=== PATIENT | female | born 1935 | race Caucasian/White ===

== ENCOUNTER 2019-06-18 10:52 | Inpatient (IN) | payer OTHER ==
--- NOTE | 2019-06-18 12:07 | PDOC ---
History of Present Illness - General Chief Complaint: Injury Stated Complaint: FALL Time Seen by Provider: 06/18/19 12:06 History Source: Patient Exam Limitations: No Limitations - History of Present Illness Initial Comments: 06/18/19 15:18 Rosemary Yip is a 83yF w HTN presenting w hip pain s/p fall. 10:30a this morning, pt felt legs give way, fell down on L hip with subsequent pain. Also hit L temporal head. Currently complaining of L hip and thigh pain. Denies LE numbness, tingling. Not on anticoagulation. Denies fever, headache, changes of vision, SOB, chest/AB pain. Did not attempt to ambulate after fall. Past History - Past Medical History Allergies/Adverse Reactions: Allergies Allergy/AdvReac Type Severity Reaction Status Date / Time No Known Allergies Allergy Verified 11/21/11 10:11 Home Medications: Ambulatory Orders Metformin HCl [Glucophage] 850 mg PO DAILY 11/21/11 Fluoxetine HCl [Prozac -] 20 mg PO DAILY #0 capsule 12/04/11 Aspirin 81 mg PO Q2D 06/18/19 Atenolol [Tenormin] 50 mg PO DAILY 06/18/19 Celecoxib [Celebrex] 100 mg PO DAILY 06/18/19 Losartan/Hydrochlorothiazide [Losartan-Hctz 50-12.5 mg Tab] PO DAILY 06/18/19 Vitamin D3 2,000 units PO DAILY 06/18/19 Anemia: No Asthma: No Cancer: No Cardiac Disorders: No CVA: No COPD: Yes CHF: No Dementia: No Diabetes: Yes GI Disorders: No Disorders: No HTN: Yes Hypercholesterolemia: No Liver Disease: Yes (alcohol related.) Seizures: No Thyroid Disease: No - Surgical History Abdominal Surgery: No Appendectomy: No Cardiac Surgery: No Cholecystectomy: No Lung Surgery: No Neurologic Surgery: Yes (spinal sx- abscess excision) Orthopedic Surgery: No - Immunization History Td Vaccination: No TDAP Vaccination: No Immunization Up to Date: Yes - Suicide/Smoking/Psychosocial Hx Smoking Status: No (QUIT X 28 YRS AGO0) Smoking History: Former smoker Have you smoked in the past 12 months: No Number of Cigarettes Smoked Daily: 0 If you are a former smoker, when did you quit?: 30 years ago Hx Alcohol Use: No (stopped 30 years ago) Drug/Substance Use Hx: No Substance Use Type: None Hx Substance Use Treatment: No Review of Systems - Review of Systems Constitutional: No: Chills, Fever HEENTM: No: Eye Pain, Ear Pain, Nose Pain, Throat Pain Respiratory: No: Cough, Shortness of Breath Cardiac (ROS): No: Chest Pain, Edema, Palpitations, Syncope ABD/GI: No: Abdominal Distended, Constipated, Diarrhea, Nausea, Vomiting : No: Burning, Dysuria, Discharge, Flank Pain, Hematuria Musculoskeletal: Yes: Other (L hip, thigh pain). No: Back Pain Integumentary: No: Bruising, Flushing, Lesions Neurological: No: Headache, Numbness, Seizure, Tingling, Tremors Psychiatric: No: Anxiety, Depression, Stressors Endocrine: No: Symptoms Reported, Excessive Sweating, Flushing, Intolerance to Heat Hematologic/Lymphatic: No: Anemia, Blood Clots, Easy Bleeding *Physical Exam - Physical Exam General Appearance: Yes: Nourished, Appropriately Dressed, Mild Distress HEENT: positive: EOMI, MATHEUS, Hearing Grossly Normal. negative: Scleral Icterus (R), Scleral Icterus (L), Nasal Congestion, Rhinorrhea Neck: positive: Supple. negative: Tender, Rigid Respiratory/Chest: positive: Lungs Clear, Normal Breath Sounds. negative: Chest Tender, Respiratory Distress, Crackles, Rales, Rhonchi, Stridor, Wheezing Cardiovascular: positive: Regular Rhythm, Regular Rate, S1, S2. negative: Edema , Murmur Musculoskeletal: positive: Normal Inspection Extremity: positive: Normal Capillary Refill, Tender (moderate tenderness L hip , thigh), Other (3/5 L hip flexion, 5/5 plantar/dorsiflexion. 3+ dp pulses, normal sensation bilaterally. L leg external rotated, shortened 1inch versus R leg). negative: Swelling, Erythema Integumentary: positive: Normal Color Neurologic: positive: multi sensor operator II-XII NML intact, Fully Oriented, Alert, Normal Mood/ Affect, Normal Response, Respond to painful stimul, Responsive. negative: Sensory Deficit, Confused, Disoriented ED Treatment Course - LABORATORY CBC & Chemistry Diagram: 06/18/19 12:05 06/18/19 12:05 Medical Decision Making - Medical Decision Making 06/18/19 12:45 CBC CMP trop coags T&S EKG CXR head/c-spine/lumbar CT shows no fracture/subluxation, post bilateral laminectomy C4-7 CXR clear lungs L hip/pelvis XR shows L greater trochanter displaced, non comminuted fracture Given 6 morphine + 1L NS for pain ALP 236 CBC, CMP, coags normal, trop neg Rosemary Yip is a 83yF w HTN presenting w hip pain s/p mechanical fall. XR shows L hip comminuted intertrochanteric fracture. Not on anticoagulation. Neuro intact. Head/c-spine/lumbar CT neg bleed/fracture, post bilateral laminectomy C4-7. Given 6 morphine + 1L NS for pain. Admitted to [facility] for femur fracture. Consulted ortho Adithya BLACKMAN. Agreed with plan to admit, dont have to keep her NPO tonight because she likely will not have surgery tomorrow Called cotton ti[facility] Dr Matute notifying Dr Yury Diaz PCP of pt being admitted for fracture. *DC/Admit/Observation/Transfer Diagnosis at time of Disposition: Intertrochanteric fracture of left hip Qualifiers: Encounter type: initial encounter Fracture type: closed Fracture alignment: displaced Qualified Code(s): S72.142A - Displaced intertrochanteric fracture of left femur, initial encounter for closed fracture - Discharge Dispostion Condition at time of disposition: Good - Referrals Referrals: Yruy Diaz MD [Primary Care Provider] - - Patient Instructions - Post Discharge Activity
[2019-06-18] MEDS ORDERED: morphine CARPU-JECT 4 MG/1 ML DISP.SYRIN IVPUSH ONE ×2 (12:35→16:45)
[2019-06-18 12:41] LABS: BASO % 0.4 % (0-2.0); EOS % 2.8 % (0-4.5); HEMATOCRIT 37.1 % (32.4-45.2); HEMOGLOBIN 12.6 GM/dL (10.7-15.3); MCH 33.4 pg (25.7-33.7); MEAN CELL VOLUME 98.4 fl (80-96); MEAN PLT VOLUME 8.5 fl (7.5-11.1); MONO % 6.4 % (3.8-10.2); NEUT % 76.4 % (42.8-82.8); PLATELET COUNT 121 K/MM3 (134-434); RBC 3.77 M/mm3 (3.60-5.2); RDW 13.1 % (11.6-15.6); WHITE BLOOD COUNT 7.3 K/mm3 (4.0-10.0)
[2019-06-18 13:07] LABS: INR 1.04 (0.83-1.09); PROTHROMBIN TIME (PATIENT) 12.3 SEC (9.7-13.0)
[2019-06-18] MEDS ORDERED: MORPHINE SULFATE 2 MG/ML VIAL ONE (13:08)
[2019-06-18 13:41] LABS: ALBUMIN 3.4 g/dl (3.4-5.0); ALK PHOS 236 U/L (45-117); ANION GAP 8 MMOL/L (8-16); BILIRUBIN,TOTAL 0.8 mg/dL (0.2-1); BLOOD UREA NITROGEN 17.2 mg/dL (7-18); CALCIUM 9.9 mg/dL (8.5-10.1); CHLORIDE 93 mmol/L (98-107); CO2 30 mmol/L (21-32); CREATININE 1.1 mg/dL (0.55-1.3); GLUCOSE,RANDOM 134 mg/dL (74-106); POTASSIUM 3.9 mmol/L (3.5-5.1); SGOT/AST 32 U/L (15-37); SGPT/ALT 18 U/L (13-61); SODIUM 130 mmol/L (136-145); TOT PROT 6.8 g/dl (6.4-8.2)
[2019-06-18] MEDS ORDERED: SODIUM CHLORIDE 0.9% 500 ML INFUS.BAG IV ONE (16:45)
[2019-06-18] MEDS ORDERED: morphine SULFATE 4 MG/ML VIAL ONE (17:18)
[2019-06-18] MEDS ORDERED: morphine CARPU-JECT 2 MG/1 ML DISP.SYRIN IVPUSH PRN (17:29)
[2019-06-18] MEDS ORDERED: ACETAMINOPHEN 325 MG TABLET (FP) PO PRN (17:29)
[2019-06-18] MEDS: SODIUM CHLORIDE 1,000 ML IV SCH ×2 (18:14→22:02)
--- NOTE | 2019-06-18 19:03 | PN ---
Progress Note (short form) - Note Progress Note: Pt known to me for > 30 years. Most recent history notable for cervical osteomyelitis 5 years ago, treated with surgery and prolonged antibiotics, but which left her with a gait disturance. Other history includes hypertension, anxiety, and type 2 diabetes. Recent medications included: vitamin D3 2000 units daily Cozaar 50 mg po daily metoprolol succinate 50 mg po daily Prozac 20 mg po daily metformin HCL 850 mg po daily diazepam 5 mg po tid as needed She has had both 23 and 13-valent pneumococcal vaccine. She has not yet had this year's influenza vaccine. She fell in my office today when getting off a scale, resulting in a hip fracture and transfer to hospital. Wesley Diaz MD
--- NOTE | 2019-06-18 20:06 | HP ---
Admitting History and Physical - Primary Care Physician PCP: Dr. 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 Patient s/p fall at 10: 30am went to her doctor office where she felt legs give way, fell down on left hip, also hit her left temporal head. Currently complaining of Left hip pain . Patient denies numbness, tingling. Denies fever, headache, dizziness, changes of vision, SOB, chest pain. Patient is not on anticoagulation. History Source: Patient, Family Member Limitations to Obtaining History: No Limitations - Past Medical History Cardiovascular: Yes: HTN Pulmonary: Yes: COPD Hepatobiliary: Yes: Other (liver disease (secondary to EtOH)) Psych: Yes: Depression Endocrine: Yes: Diabetes Mellitus - Past Surgical History Additional Past Surgical History: Spinal abscess excision, post laminectomy from C4- C7 - Smoking History Smoking history: Former smoker Have you smoked in the past 12 months: No Aproximately how many cigarettes per day: 0 If you are a former smoker, when did you quit?: 30 years ago - Alcohol/Substance Use Hx Alcohol Use: No (stopped 30 years ago) - Social History History of Recent Travel: No Home Medications - Allergies Allergies/Adverse Reactions: Allergies Allergy/AdvReac Type Severity Reaction Status Date / Time No Known Allergies Allergy Verified 11/21/11 10:11 - Home Medications Home Medications: Ambulatory Orders Metformin HCl [Glucophage] 850 mg PO DAILY 11/21/11 Fluoxetine HCl [Prozac -] 20 mg PO DAILY #0 capsule 12/04/11 Aspirin 81 mg PO Q2D 06/18/19 Atenolol [Tenormin] 50 mg PO DAILY 06/18/19 Celecoxib [Celebrex] 100 mg PO DAILY 06/18/19 Losartan/Hydrochlorothiazide [Losartan-Hctz 50-12.5 mg Tab] PO DAILY 06/18/19 Vitamin D3 2,000 units PO DAILY 06/18/19 Family Medical History Family History: Denies Review of Systems - Review of Systems Constitutional: reports: No Symptoms Eyes: reports: No Symptoms HENT: reports: No Symptoms Neck: reports: No Symptoms Cardiovascular: reports: No Symptoms Respiratory: reports: No Symptoms Gastrointestinal: reports: No Symptoms Genitourinary: reports: No Symptoms Musculoskeletal: reports: Back Pain, Extremity Pain Integumentary: reports: No Symptoms Neurological: reports: No Symptoms Endocrine: reports: No Symptoms Psychiatric: reports: No Symptoms Pain Intensity: 8 (Left hip pain 8/10 post morphine ) Physical Examination Vital Signs: Vital Signs Temperature 98.2 F 06/18/19 19:53 Pulse Rate 85 06/18/19 19:53 Respiratory Rate 18 06/18/19 19:53 Blood Pressure 122/64 06/18/19 19:53 O2 Sat by Pulse Oximetry (%) 97 06/18/19 11:30 Constitutional: Yes: Mild Distress Eyes: Yes: Conjunctiva Clear HENT: Yes: Atraumatic, Normocephalic Neck: Yes: Supple, Trachea Midline Cardiovascular: Yes: Regular Rate and Rhythm Respiratory: Yes: Regular, CTA Bilaterally Gastrointestinal: Yes: Normal Bowel Sounds, Soft Musculoskeletal: Yes: Other (Tender L hip, thigh, L leg external rotated, shortened 1inch versus R leg) Extremities: Yes: Other (+Left hip tenderness to palpation. +LLE is short and externally rotated. +2+ pedal pulses. unable to move LLE) Edema: No Integumentary: Yes: WNL Neurological: Yes: Alert, Oriented Labs: CBC, BMP 06/18/19 12:05 06/18/19 12:05 Imaging - Results Chest X-ray: Report Reviewed (no acute finding) X-ray: Report Reviewed (Hip/pelvis: left hip communicated intertochanteric fx) Cat Scan: Report Reviewed (C-spine: s/p laminectomy from C4- C7 CT brain: no acute bleeding, infarct CT lumbar spine: multilevel disc buldge, no fracture) Problem List - Problems (1) Cause of injury, fall Code(s): W19.XXXA - UNSPECIFIED FALL, INITIAL ENCOUNTER (2) Diabetes Code(s): E11.9 - TYPE 2 DIABETES MELLITUS WITHOUT COMPLICATIONS (3) HTN (hypertension) Code(s): I10 - ESSENTIAL (PRIMARY) HYPERTENSION (4) COPD (chronic obstructive pulmonary disease) Code(s): J44.9 - CHRONIC OBSTRUCTIVE PULMONARY DISEASE, UNSPECIFIED (5) Intertrochanteric fracture of left hip Code(s): S72.142A - DISPLACED INTERTROCHANTERIC FRACTURE OF LEFT FEMUR, INIT Qualifiers: Encounter type: initial encounter Fracture type: closed Fracture alignment: displaced Qualified Code(s): S72.142A - Displaced intertrochanteric fracture of left femur, initial encounter for closed fracture Assessment/Plan 83 year old with PMHx of HTN, COPD, DM arrived to ED s/p fall with hip pain. #L hip comminuted intertrochanteric fracture #s/p fall - CXR: no acute finding - CT head- no acute infarct, bleeding noted - C- spine CT- post bilateral laminectomy C4-7 - Lumbar CT- shows no fracture/subluxation - L hip/pelvis XR shows L greater trochanter displaced, non comminuted fracture IN ED given 6 morphine and 1L NS CBC, CMP, coags normal, trop neg - continue with IV fluids - pain management - follow up Ortho in AM # DM - monitor FSBS - Novolog sliding scale #HTN - hold po medication - Losartan/Hydrochlorothiazide PO DAILY - Atenolol [Tenormin] 50 mg PO DAILY # Depression - Fluoxetine HCl 20 mg PO DAILY DIET: DARIO/NCS DVT: Heaprin SQ Visit type - Emergency Visit Emergency Visit: Yes ED Registration Date: 06/18/19 Care time: The patient presented to the Emergency Department on the above date and was hospitalized for further evaluation of their emergent condition. - New Patient This patient is new to me today: Yes Date on this admission: 06/18/19 - Critical Care Critical Care patient: No
[2019-06-18] MEDS: HEPARIN NA (PORCINE) 5,000 UNITS/ML 1ML VIAL SQ SCH (22:02)
[2019-06-18] MEDS: MORPHINE SULFATE 2 MG/ML VIAL IVPUSH PRN (22:12)
[2019-06-19 01:37] VITALS: BMI 29.0
[2019-06-19] MEDS: MORPHINE SULFATE 2 MG/ML VIAL IVPUSH PRN ×2 (02:54→12:09)
[2019-06-19] MEDS: INSULIN SLIDING SCALE (NOVOLOG) 1 VIAL SQ SCH ×2 (06:19→16:51)
[2019-06-19 07:11] LABS: HEMATOCRIT 33.7 % (32.4-45.2); HEMOGLOBIN 11.5 GM/dL (10.7-15.3); MCH 33.9 pg (25.7-33.7); MCHC 34.2 g/dl (32.0-36.0); MEAN CELL VOLUME 99.2 fl (80-96); MEAN PLT VOLUME 8.3 fl (7.5-11.1); PLATELET COUNT 111 K/MM3 (134-434); WHITE BLOOD COUNT 6.5 K/mm3 (4.0-10.0)
[2019-06-19 07:16] LABS: BLOOD UREA NITROGEN 18.1 mg/dL (7-18); CALCIUM 9.2 mg/dL (8.5-10.1); CREATININE 1.1 mg/dL (0.55-1.3); POTASSIUM 4.4 mmol/L (3.5-5.1)
[2019-06-19] MEDS ORDERED: PT OWN MED DRAWER 7, Y5N ONE (09:30)
[2019-06-19] MEDS: FLUoxetine HCL 20 MG CAPSULE (FP) PO SCH (09:31)
[2019-06-19] MEDS: HEPARIN NA (PORCINE) 5,000 UNITS/ML 1ML VIAL SQ SCH ×2 (09:31→21:13)
[2019-06-19] MEDS: CHOLECALCIFEROL (VIT D3) 1,000 UNIT (25 MCG) TABLET PO SCH (09:31)
[2019-06-19] MEDS ORDERED: VITAMIN D3 2000 UNIT PO SCH (10:00)
[2019-06-19] MEDS ORDERED: CELECOXIB 100 MG CAPSULE PO SCH (10:00)
[2019-06-19] MEDS ORDERED: LOSARTAN 50MG/HCTZ 12.5MG 1 TAB (FP) PO SCH (10:00)
[2019-06-19] MEDS ORDERED: ATENOLOL 50 MG TABLET (FP) PO SCH (10:00)
--- NOTE | 2019-06-19 10:59 | PN ---
Physical Exam: SUBJECTIVE: Patient seen and examined at the bedside. Feels well, in no acute distress. having some left hip pain. last bm yesterday, will start bowel regimen having some discomfort from overgrown nails, was going to see her science manager who usually cuts her nails 2/2 diabetes. OBJECTIVE: Patient is an 83 year old female with PMHx of hypertension, diabetes II (on metformin) depression, hx of ETOH abuse years ago, varical bleeding history and liver cirrhosis. Patient arrived to ED for hip pain post fall. Patient s/p fall at her doctor office where she lost her balance when getting on a scale to be weight. She unfortunately sustained a left him comm. fracture and is being admitted for surgical evaluation and pain managment. On exam, patient is laying in the bed, son is as the bedside. She is comfortable and has a hip abductor pillow placed. She denies headache, dizziness, changes of vision, SOB, chest pain. Patient is not on anticoagulation. Vital Signs Period Temp Pulse Resp BP Sys/Hoang Pulse Ox Last 24 Hr 97.6 F-98.5 F 69-86 16-18 116-130/51-86 96-97 GENERAL: The patient is awake, alert, and fully oriented, in no acute distress. HEAD: Normal with no signs of trauma. EYES: PERRL, extraocular movements intact, sclera anicteric, conjunctiva clear. No ptosis. ENT: Ears normal, nares patent, oropharynx clear without exudates, moist mucous membranes. NECK: Trachea midline, full range of motion, supple. LUNGS: Breath sounds equal, clear to auscultation bilaterally, no wheezes HEART: Regular rate and rhythm ABDOMEN: Soft, nontender, obese abdomen nondistended, normoactive bowel sounds EXTREMITIES: no edema. NEUROLOGICAL: Normal speech, left hip fx PSYCH: Normal mood, normal affect. SKIN: Warm, dry, normal turgor, no rashes or lesions noted Laboratory Results - last 24 hr 06/18/19 06/18/19 06/18/19 12:05 12:05 12:05 WBC 7.3 RBC 3.77 Hgb 12.6 Hct 37.1 MCV 98.4 H MCH 33.4 MCHC 34.0 RDW 13.1 Plt Count 121 L MPV 8.5 Absolute Neuts (auto) 5.6 Neutrophils % 76.4 D Lymphocytes % 14.0 D Monocytes % 6.4 Eosinophils % 2.8 Basophils % 0.4 Nucleated RBC % 0 PT with INR 12.30 INR 1.04 Sodium 130 L Potassium 3.9 Chloride 93 L Carbon Dioxide 30 Anion Gap 8 BUN 17.2 Creatinine 1.1 Est GFR (CKD-EPI)AfAm 54.15 Est GFR (CKD-EPI)NonAf 46.72 POC Glucometer Random Glucose 134 H Calcium 9.9 Total Bilirubin 0.8 AST 32 ALT 18 Alkaline Phosphatase 236 H Troponin I < 0.02 Total Protein 6.8 Albumin 3.4 Blood Type Antibody Screen 06/18/19 06/19/19 06/19/19 12:05 06:08 06:08 WBC 6.5 RBC 3.40 L Hgb 11.5 Hct 33.7 MCV 99.2 H MCH 33.9 H MCHC 34.2 RDW 13.0 Plt Count 111 L MPV 8.3 Absolute Neuts (auto) Neutrophils % Lymphocytes % Monocytes % Eosinophils % Basophils % Nucleated RBC % PT with INR INR Sodium 132 L Potassium 4.4 Chloride 98 Carbon Dioxide 28 Anion Gap 7 L BUN 18.1 H Creatinine 1.1 Est GFR (CKD-EPI)AfAm 54.15 Est GFR (CKD-EPI)NonAf 46.72 POC Glucometer Random Glucose 98 Calcium 9.2 Total Bilirubin AST ALT Alkaline Phosphatase Troponin I Total Protein Albumin Blood Type Cancelled Antibody Screen Cancelled 06/19/19 06/19/19 06:08 06:15 WBC RBC Hgb Hct MCV MCH MCHC RDW Plt Count MPV Absolute Neuts (auto) Neutrophils % Lymphocytes % Monocytes % Eosinophils % Basophils % Nucleated RBC % PT with INR INR Sodium Potassium Chloride Carbon Dioxide Anion Gap BUN Creatinine Est GFR (CKD-EPI)AfAm Est GFR (CKD-EPI)NonAf POC Glucometer 104 Random Glucose Calcium Total Bilirubin AST ALT Alkaline Phosphatase Troponin I Total Protein Albumin Blood Type O POSITIVE Antibody Screen Negative Active Medications Generic Name Dose Route Start Last Admin Trade Name Freq PRN Reason Stop Dose Admin Acetaminophen 650 mg 06/18/19 17:29 Tylenol - PO Q6H PRN PAIN LEVEL 6-10 Atenolol 50 mg 06/19/19 10:00 06/19/19 09:31 Tenormin - PO 50 mg DAILY SAGAR Administration Cholecalciferol 2,000 unit 06/19/19 10:00 06/19/19 09:31 Vitamin D3 - PO 2,000 unit DAILY SAGAR Administration Fluoxetine HCl 20 mg 06/19/19 10:00 06/19/19 09:31 Prozac - PO 20 mg DAILY SAGAR Administration HCTZ/Losartan Potassium 1 tab 06/19/19 10:00 06/19/19 09:32 Hyzaar - PO 1 tab DAILY SAGAR Administration Heparin Sodium (Porcine) 5,000 unit 06/18/19 22:00 06/19/19 09:31 Heparin - SQ 5,000 unit BID SAGAR Administration Sodium Chloride 1,000 mls @ 75 mls/hr 06/18/19 17:45 06/18/19 22:02 Normal Saline - IV 75 mls/hr ASDIR SAGAR Administration Insulin Aspart 1 vial 06/19/19 07:00 06/19/19 06:19 Novolog Vial Sliding Scale - SQ Not Given [facility] Protocol Morphine Sulfate 2 mg 06/18/19 17:35 06/19/19 02:54 Morphine Sulfate IVPUSH 2 mg Q4H PRN Administration PAIN LEVEL 7 - 10 ASSESSMENT/PLAN: Problem List - Problems (1) Intertrochanteric fracture of left hip Assessment/Plan: patient s/p fall. L hip/pelvis XR shows L greater trochanter displaced, non comminuted fracture on an abductor pillow continue pain management with ultram and lidocaine patches no other acute fracture on serial imaging ortho to follow patient for surgical evaluation, likely on Friday Cardiology clearance prior to surgery on heparin BID, hold friday Code(s): S72.142A - DISPLACED INTERTROCHANTERIC FRACTURE OF LEFT FEMUR, INIT Qualifiers: Encounter type: initial encounter Fracture type: closed Fracture alignment: displaced Qualified Code(s): S72.142A - Displaced intertrochanteric fracture of left femur, initial encounter for closed fracture (2) Cause of injury, fall Assessment/Plan: has left hip fracture initiate PT once more stable. Code(s): W19.XXXA - UNSPECIFIED FALL, INITIAL ENCOUNTER (3) Diabetes Assessment/Plan: bgms, with novolog ss maintain BGMs < 180 fasting. Code(s): E11.9 - TYPE 2 DIABETES MELLITUS WITHOUT COMPLICATIONS (4) HTN (hypertension) Assessment/Plan: metoprolol 50 daily, cozaar 50mg daily orthostatics once more stable Code(s): I10 - ESSENTIAL (PRIMARY) HYPERTENSION (5) Anxiety Assessment/Plan: valium 5mg tid prn Code(s): F41.9 - ANXIETY DISORDER, UNSPECIFIED (6) Prophylactic measure Assessment/Plan: fen tolerating PO monitor electrolytes hyponatremia noted, continue ivf full code Code(s): Z29.9 - ENCOUNTER FOR PROPHYLACTIC MEASURES, UNSPECIFIED Visit type - Emergency Visit Emergency Visit: Yes ED Registration Date: 06/18/19 Care time: The patient presented to the Emergency Department on the above date and was hospitalized for further evaluation of their emergent condition. - New Patient This patient is new to me today: Yes Date on this admission: 06/19/19 - Critical Care Critical Care patient: No - Discharge Referral Referred to [facility] No
[2019-06-19] MEDS: LIDOCAINE 5% TOPICAL PATCH TP SCH (12:09)
--- NOTE | 2019-06-19 12:19 | CON.CARD ---
Consult Consult Specialty:: Cardiology Referred by:: Medicine Reason for Consultation:: preoperative evaluation - History of Present Illness Chief Complaint: hip fracture, fall History of Present Illness: 83F h/o HTN, COPD, DM, liver dz p/w hip pain, s/p fall. Has been feeling unsteady and weak in her legs, normally goes to the grocery store twice a week and feels no exertional symptoms but legs get tired. Yesterday she was stepping onto scale, felt her legs give way and fell on her L side, s/p hip fracture. No chest pain, palps, dizziness, lightheadedness, syncope. No prior cardiac hx. - Past Medical History Cardio/Vascular: Yes: HTN Pulmonary: Yes: COPD Hepatobiliary: Yes: Other (liver disease (secondary to EtOH)) ...: No Psych: Yes: Depression Endocrine: Yes: Diabetes Mellitus - Alcohol/Substance Use Hx Alcohol Use: No (stopped 30 years ago) - Smoking History Smoking history: Former smoker Have you smoked in the past 12 months: No Aproximately how many cigarettes per day: 0 If you are a former smoker, when did you quit?: 30 years ago - Social History History of Recent Travel: No Home Medications - Allergies Allergies/Adverse Reactions: Allergies Allergy/AdvReac Type Severity Reaction Status Date / Time Penicillins Allergy Verified 06/18/19 19:57 - Home Medications Home Medications: Ambulatory Orders Metformin HCl [Glucophage] 850 mg PO DAILY 11/21/11 Fluoxetine HCl [Prozac -] 20 mg PO DAILY #0 capsule 12/04/11 Aspirin 81 mg PO Q2D 06/18/19 Atenolol [Tenormin] 50 mg PO DAILY 06/18/19 Celecoxib [Celebrex] 100 mg PO DAILY 06/18/19 Losartan/Hydrochlorothiazide [Losartan-Hctz 50-12.5 mg Tab] PO DAILY 06/18/19 Vitamin D3 2,000 units PO DAILY 06/18/19 Family Medical History Family History: Unremarkable Review of Systems - Review of Systems Constitutional: reports: No Symptoms Eyes: reports: No Symptoms HENT: reports: No Symptoms Neck: reports: No Symptoms Cardiovascular: reports: No Symptoms Respiratory: reports: No Symptoms Gastrointestinal: reports: No Symptoms Musculoskeletal: reports: Joint Pain Integumentary: reports: No Symptoms Neurological: reports: No Symptoms Endocrine: reports: No Symptoms Hematology/Lymphatic: reports: No Symptoms Vital Signs: Vital Signs Temperature 98.3 F 06/19/19 06:00 Pulse Rate 85 06/19/19 06:00 Respiratory Rate 16 06/19/19 06:00 Blood Pressure 116/51 L 06/19/19 06:00 O2 Sat by Pulse Oximetry (%) 96 06/19/19 00:56 Constitutional: Yes: No Distress, Calm Eyes: Yes: Conjunctiva Clear, EOM Intact HENT: Yes: Atraumatic, Normocephalic Neck: Yes: Supple, Trachea Midline Respiratory: Yes: Regular, CTA Bilaterally Gastrointestinal: Yes: Normal Bowel Sounds, Soft Cardiovascular: Yes: Regular Rate and Rhythm JVD: No Heart Sounds: Yes: S1, S2 Extremities: Yes: External Rotation (LLE) Edema: No Integumentary: No: Jaundice Neurological: Yes: Alert, Oriented Psychiatric: No: Agitated - Other Data Labs, Other Data: CBC, BMP 06/19/19 06:08 06/19/19 06:08 INR, PTT INR 1.04 (0.83-1.09) 06/18/19 12:05 Troponin, BNP 06/18/19 12:05 Troponin I < 0.02 Troponin, BNP 06/18/19 12:05 Troponin I < 0.02 Assessment/Plan CXR: no acute process Preoperative evaluation, hip fracture - s/p fall - no loss of consciousness - ortho evaluation - EKG is pending - echo ordered HTN - stable on current meds, continue DM - manage per primary COPD - manage per primary
--- NOTE | 2019-06-19 12:37 | CON.ORTH ---
Consult Reason for Consultation:: left hip fx - Past Medical History Cardio/Vascular: Yes: HTN Pulmonary: Yes: COPD Hepatobiliary: Yes: Other (liver disease (secondary to EtOH)) ...: No Psych: Yes: Depression Endocrine: Yes: Diabetes Mellitus - Alcohol/Substance Use Hx Alcohol Use: No (stopped 30 years ago) - Smoking History Smoking history: Former smoker Have you smoked in the past 12 months: No Aproximately how many cigarettes per day: 0 If you are a former smoker, when did you quit?: 30 years ago - Social History History of Recent Travel: No Home Medications - Allergies Allergies/Adverse Reactions: Allergies Allergy/AdvReac Type Severity Reaction Status Date / Time Penicillins Allergy Verified 06/18/19 19:57 - Home Medications Home Medications: Ambulatory Orders Metformin HCl [Glucophage] 850 mg PO DAILY 11/21/11 Fluoxetine HCl [Prozac -] 20 mg PO DAILY #0 capsule 12/04/11 Aspirin 81 mg PO Q2D 06/18/19 Atenolol [Tenormin] 50 mg PO DAILY 06/18/19 Celecoxib [Celebrex] 100 mg PO DAILY 06/18/19 Losartan/Hydrochlorothiazide [Losartan-Hctz 50-12.5 mg Tab] PO DAILY 06/18/19 Vitamin D3 2,000 units PO DAILY 06/18/19 Physical Exam for Ortho Vital Signs: Vital Signs Temperature 98.3 F 06/19/19 06:00 Pulse Rate 85 06/19/19 06:00 Respiratory Rate 16 06/19/19 06:00 Blood Pressure 116/51 L 06/19/19 06:00 O2 Sat by Pulse Oximetry (%) 96 06/19/19 00:56 Labs: CBC, BMP 06/19/19 06:08 06/19/19 06:08 INR, PTT INR 1.04 (0.83-1.09) 06/18/19 12:05 - Lower Extremity Hip: Yes: Left, Decreased ROM, Leg Externally Rotated, Leg Shortened, Pain, Swelling, Other (nvi) Imaging - Results X-ray: Image Reviewed Assessment/Plan 83 year old female with PMH of HTN,COPD, DM, Depression and 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 Patient s/p fall at 10: 30am went to her doctor office where she felt legs give way, fell down on left hip, also hit her left temporal head. Currently complaining of Left hip pain . Patient denies numbness, tingling. Denies fever, headache, dizziness, changes of vision, SOB, chest pain. Patient is not on anticoagulation. a/p left displaced IT fx Risks and benefits were d/w pt and family in detail OR for left IM gamma nail once cleared tentatively for Friday as pt awating echo and cardio clearance surgical clearance npo after midnight Friday d/w Dr. Farrell
[2019-06-19] MEDS: SODIUM CHLORIDE 1,000 ML IV SCH (12:43)
[2019-06-19] MEDS ORDERED: diazePAM 2 MG TABLET PO PRN ×2 (16:29→16:31)
[2019-06-19] MEDS: traMADol HCL 50 MG TABLET PO PRN (18:00)
[2019-06-19] MEDS: LIDOCAINE PATCH REMOVAL MC SCH (21:13)
--- NOTE | 2019-06-19 23:39 | EKG ---
Test Reason : Blood Pressure : / mmHG Vent. Rate : 069 BPM Atrial Rate : 069 BPM P-R Int : 144 ms QRS Dur : 086 ms QT Int : 398 ms P-R-T Axes : 050 045 020 degrees QTc Int : 426 ms SINUS RHYTHM WITH PREMATURE ATRIAL COMPLEXES OTHERWISE NORMAL ECG WHEN COMPARED WITH ECG OF 29-NOV-2011 15:19, PREMATURE ATRIAL COMPLEXES ARE NOW PRESENT Confirmed by JUSTINE MCINTOSH, ANNIA ([id number]) on 06/19/2019 11:39:22 PM Referred By: Jesus LOPEZ Confirmed By:ANNIA FLETCHER MD
[2019-06-20] MEDS: traMADol HCL 50 MG TABLET PO PRN ×4 (05:37→21:46)
[2019-06-20] MEDS: SODIUM CHLORIDE 1,000 ML IV SCH (05:37)
[2019-06-20] MEDS: INSULIN SLIDING SCALE (NOVOLOG) 1 VIAL SQ SCH ×2 (06:09→16:42)
[2019-06-20] MEDS: CHOLECALCIFEROL (VIT D3) 1,000 UNIT (25 MCG) TABLET PO SCH (09:08)
[2019-06-20] MEDS: LOSARTAN POTASSIUM 50 MG TABLET (FP) PO SCH (09:08)
[2019-06-20] MEDS: FLUoxetine HCL 20 MG CAPSULE (FP) PO SCH (09:08)
[2019-06-20] MEDS: LIDOCAINE 5% TOPICAL PATCH TP SCH (09:08)
[2019-06-20 09:41] LABS: BASO % 0.8 % (0-2.0); EOS % 5.5 % (0-4.5); HEMOGLOBIN 11.1 GM/dL (10.7-15.3); LYMPH % 21.5 % (8-40); MCHC 34.6 g/dl (32.0-36.0); MEAN PLT VOLUME 8.1 fl (7.5-11.1); NEUT % 62.2 % (42.8-82.8); PLATELET COUNT 94 K/MM3 (134-434); RBC 3.27 M/mm3 (3.60-5.2); RDW 13.4 % (11.6-15.6); WHITE BLOOD COUNT 5.5 K/mm3 (4.0-10.0)
--- NOTE | 2019-06-20 09:42 | PN ---
Progress Note (short form) - Note Progress Note: Please note: patient does NOT have a history of COPD. This diagnosis was entered erroneously by Dr Kamran Mccollum and has been carried forward into other notes. She has no known lung disease.
[2019-06-20 09:59] LABS: INR 1.09 (0.83-1.09); PROTHROMBIN TIME (PATIENT) 12.9 SEC (9.7-13.0)
[2019-06-20 10:03] LABS: ALBUMIN 2.8 g/dl (3.4-5.0); BILIRUBIN,TOTAL 1.6 mg/dL (0.2-1); BLOOD UREA NITROGEN 16.4 mg/dL (7-18); CALCIUM 8.5 mg/dL (8.5-10.1); CREATININE 0.9 mg/dL (0.55-1.3); MAGNESIUM 1.4 mg/dL (1.8-2.4); POTASSIUM 3.5 mmol/L (3.5-5.1); TOT PROT 5.7 g/dl (6.4-8.2)
--- NOTE | 2019-06-20 10:06 | PN ---
Physical Exam: SUBJECTIVE: Patient seen and examined at the bedside. reports feeling better, pain of left hip not completely controlled on ultram Patient asking for rehab for [facility] on d/c. Informed SW of this plan. OBJECTIVE: patient does not have a diagnosis of COPD. Please remove from all notes. I will remove from imgfave. Patient is an 83 year old female with PMHx of hypertension, diabetes II (on metformin) depression, hx of ETOH abuse years ago, varical bleeding history and liver cirrhosis. Patient arrived to ED for hip pain post fall. Patient s/p fall at her doctor office where she lost her balance when getting on a scale to be weighed. She unfortunately sustained a left him comm. fracture and is being admitted for surgical evaluation and pain managment. She is comfortable and has a hip abductor pillow placed. She denies headache, dizziness, changes of vision, SOB, chest pain. Patient is not on anticoagulation. discussed plan, goals for d/c with her PCP/attending doc Dr. Yury Diaz. Vital Signs Period Temp Pulse Resp BP Sys/Hoang Pulse Ox Last 24 Hr 97.7 F-98.8 F 76-89 18-18 100-136/53-84 94 GENERAL: The patient is awake, alert, and fully oriented, in no acute distress. HEAD: Normal with no signs of trauma. EYES: PERRL, extraocular movements intact, sclera anicteric, conjunctiva clear. No ptosis. ENT: Ears normal, nares patent, oropharynx clear without exudates, moist mucous membranes. NECK: Trachea midline, full range of motion, supple. LUNGS: Breath sounds equal, clear to auscultation bilaterally, no wheezes HEART: Regular rate and rhythm ABDOMEN: Soft, nontender, obese abdomen nondistended, normoactive bowel sounds EXTREMITIES: no edema. NEUROLOGICAL: Normal speech, left hip fx PSYCH: Normal mood, normal affect. SKIN: Warm, dry, normal turgor, no rashes or lesions noted Laboratory Results - last 24 hr 06/19/19 06/19/19 06/20/19 11:47 16:11 05:36 WBC RBC Hgb Hct MCV MCH MCHC RDW Plt Count MPV Absolute Neuts (auto) Neutrophils % Lymphocytes % Monocytes % Eosinophils % Basophils % Nucleated RBC % PT with INR INR Sodium Potassium Chloride Carbon Dioxide Anion Gap BUN Creatinine Est GFR (CKD-EPI)AfAm Est GFR (CKD-EPI)NonAf POC Glucometer 109 114 92 Random Glucose Calcium Magnesium Total Bilirubin AST ALT Alkaline Phosphatase Total Protein Albumin 06/20/19 06/20/19 06/20/19 09:09 09:09 09:09 WBC 5.5 RBC 3.27 L Hgb 11.1 Hct 32.0 L MCV 98.0 H MCH 34.0 H MCHC 34.6 RDW 13.4 Plt Count 94 L MPV 8.1 Absolute Neuts (auto) 3.5 Neutrophils % 62.2 Lymphocytes % 21.5 D Monocytes % 10.0 Eosinophils % 5.5 H D Basophils % 0.8 Nucleated RBC % 0 PT with INR 12.90 INR 1.09 Sodium 131 L Potassium 3.5 Chloride 96 L Carbon Dioxide 27 Anion Gap 8 BUN 16.4 Creatinine 0.9 Est GFR (CKD-EPI)AfAm 69.01 Est GFR (CKD-EPI)NonAf 59.55 POC Glucometer Random Glucose 110 H Calcium 8.5 Magnesium 1.4 L Total Bilirubin 1.6 H AST 26 ALT 16 Alkaline Phosphatase 108 Total Protein 5.7 L Albumin 2.8 L Active Medications Generic Name Dose Route Start Last Admin Trade Name Freq PRN Reason Stop Dose Admin Acetaminophen 650 mg 06/18/19 17:29 Tylenol - PO Q6H PRN PAIN LEVEL 6-10 Cholecalciferol 2,000 unit 06/19/19 10:00 06/20/19 09:08 Vitamin D3 - PO 2,000 unit DAILY [facility] Administration Diazepam 5 mg 06/19/19 16:31 Valium - PO Q8H PRN ANXIETY Fluoxetine HCl 20 mg 06/19/19 10:00 06/20/19 09:08 Prozac - PO 20 mg DAILY [facility]AGAR Administration Heparin Sodium (Porcine) 5,000 unit 06/18/19 22:00 06/19/19 21:13 Heparin - SQ 5,000 unit BID SAGAR Administration Insulin Aspart 1 vial 06/19/19 07:00 06/20/19 06:09 Novolog Vial Sliding Scale - SQ Not Given [facility] Protocol Lidocaine 1 patch 06/19/19 12:00 06/20/19 09:08 Lidoderm Patch - TP 1 patch DAILY SAGAR Administration Losartan Potassium 50 mg 06/20/19 10:00 06/20/19 09:08 Cozaar - PO 50 mg DAILY [facility] Administration Metoprolol Succinate 50 mg 06/20/19 10:00 06/20/19 09:08 Toprol Xl - PO 50 mg DAILY SAGAR Administration Miscellaneous 1 each 06/19/19 22:00 06/19/19 21:13 Lidoderm Patch Removal MC 1 each DAILY@2200 SAG[facility] Administration Tramadol HCl 50 mg 06/19/19 15:44 06/20/19 05:37 Ultram - PO 50 mg Q8H PRN Administration PAIN LEVEL 7 - 10 ASSESSMENT/PLAN: Problem List - Problems (1) Intertrochanteric fracture of left hip Assessment/Plan: patient s/p fall on Friday06/18/2019, lost her balance when she was getting on a scale to be weighed at her PCP office. She was brought into the ED and found to have a left hip/pelvis XR that shows left greater trochanter displaced, non comminuted fracture. Now on an abductor pillow. continue pain management with ultram and lidocaine patches - increased the frequency of when she gets ultram from q4 from q8 for better pain control. no other acute fracture on serial imaging ortho to follow patient for surgical evaluation, likely on Friday after echocardiogram. Cardiology clearance prior to surgery on heparin BID, will hold heparin dose tonight. pre surgery care: - incentive spirometer - npo at midnight, NO ivf tonight - bowel regimen - type and screen/pt/inr Code(s): S72.142A - DISPLACED INTERTROCHANTERIC FRACTURE OF LEFT FEMUR, INIT Qualifiers: Encounter type: initial encounter Fracture type: closed Fracture alignment: displaced Qualified Code(s): S72.142A - Displaced intertrochanteric fracture of left femur, initial encounter for closed fracture (2) Cause of injury, fall Assessment/Plan: has left hip fracture initiate PT once more stable. patient wishes to go to [facility] made aware. Code(s): W19.XXXA - UNSPECIFIED FALL, INITIAL ENCOUNTER (3) Hyponatremia Assessment/Plan: fluid restrict 1000cc of fluid. repeat cmp in a.m. Code(s): E87.1 - HYPO-OSMOLALITY AND HYPONATREMIA (4) Diabetes Assessment/Plan: bgms, with novolog ss maintain BGMs < 180 fasting. Code(s): E11.9 - TYPE 2 DIABETES MELLITUS WITHOUT COMPLICATIONS (5) HTN (hypertension) Assessment/Plan: metoprolol 50 daily, cozaar 50mg daily orthostatics once more stable Code(s): I10 - ESSENTIAL (PRIMARY) HYPERTENSION (6) Anxiety Assessment/Plan: valium 5mg tid prn for anxiety Code(s): F41.9 - ANXIETY DISORDER, UNSPECIFIED (7) Prophylactic measure Assessment/Plan: fen tolerating PO monitor electrolytes hyponatremia noted, fluid restriction of 1000cc of fluid. full code Code(s): Z29.9 - ENCOUNTER FOR PROPHYLACTIC MEASURES, UNSPECIFIED Visit type - Emergency Visit Emergency Visit: Yes ED Registration Date: 06/18/19 Care time: The patient presented to the Emergency Department on the above date and was hospitalized for further evaluation of their emergent condition. - New Patient This patient is new to me today: No - Critical Care Critical Care patient: No - Discharge Referral Referred to [facility] Med P.C.: No
--- NOTE | 2019-06-20 10:12 | PDOC ---
Documentation entered by Trish Denton SCRIBE, acting as scribe for Victoriano Vargas MD. Victoriano Vargas MD: This documentation has been prepared by the Corrie earl Adrianna, SCRIBE, under my direction and personally reviewed by me in its entirety. I confirm that the documentation accurately reflects all work, treatment, procedures, and medical decision making performed by me. 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 Patient was at the doctors office, when she lost her balance and she fell. Patient reports hitting her left hip and the left temporal aspect of her head. She denies any LOC or head pain. She endorses left hip pain while in the ED. Denies fever, chills, chest pain, SOB, nausea, vomit, diarrhea, constipation, dysuria, hematuria, changes in vision, focal weakness/numbness, or tingling. Allergies: NKA, NKDA Surgical History: Spinal abscess excision Social History: Former smoker (quit 30 years ago). Former EtOH use (quit 30 years ago). Denies illicit drug use PCP: Dr. Diaz - Physicial Exam PE: Agree with resident exam - Medical Decision Making 83yo F presents to the ED with witnessed mechanical fall off scale, found to have L intertrochanteric fracture L distal extremity WWP, 2+ DP and TP pulses, compartments soft throughout LLE Ortho consulted REmaining trauma w/u neg Pt admitted for further mgmt
[2019-06-20] MEDS: HEPARIN NA (PORCINE) 5,000 UNITS/ML 1ML VIAL SQ SCH ×2 (10:15→21:36)
[2019-06-20] MEDS ORDERED: MAGNESIUM OXIDE 400 MG TABLET (FP) PO ONE (10:45)
--- NOTE | 2019-06-20 12:56 | PN ---
Progress Note (short form) - Note Progress Note: s: no chest pain, palps, dizziness, dyspnea Current Medications Acetaminophen (Tylenol -) 650 mg PO Q6H PRN PRN Reason: PAIN LEVEL 6-10 Cholecalciferol (Vitamin D3 -) 2,000 unit PO DAILY [facility] Last Admin: 06/20/19 09:08 Dose: 2,000 unit Diazepam (Valium -) 5 mg PO Q8H PRN PRN Reason: ANXIETY Fluoxetine HCl (Prozac -) 20 mg PO DAILY [facility] Last Admin: 06/20/19 09:08 Dose: 20 mg Heparin Sodium (Porcine) (Heparin -) 5,000 unit SQ BID [facility] Last Admin: 06/20/19 10:15 Dose: 5,000 unit Insulin Aspart (Novolog Vial Sliding Scale -[facility] Protocol Last Admin: 06/20/19 06:09 Dose: Not Given Lidocaine (Lidoderm Patch -) 1 patch TP DAILY [facility] Last Admin: 06/20/19 09:08 Dose: 1 patch Losartan Potassium (Cozaar -) 50 mg PO DAILY [facility] Last Admin: 06/20/19 09:08 Dose: 50 mg Metoprolol Succinate (Toprol Xl -) 50 mg PO DAILY [facility] Last Admin: 06/20/19 09:08 Dose: 50 mg Miscellaneous (Lidoderm Patch Removal) 1 each MC DAILY@2200 [facility] Last Admin: 06/19/19 21:13 Dose: 1 each Tramadol HCl (Ultram -) 50 mg PO Q4H PRN PRN Reason: PAIN LEVEL 7 - 10 Vital Signs: Vital Signs Period Temp Pulse Resp BP Sys/Hoang Pulse Ox Last 24 Hr 97.7 F-98.8 F 76-89 18-18 100-136/53-84 94-95 Constitutional: Yes: No Distress, Calm Eyes: Yes: Conjunctiva Clear, EOM Intact HENT: Yes: Atraumatic, Normocephalic Neck: Yes: Supple, Trachea Midline Respiratory: Yes: Regular, CTA Bilaterally Gastrointestinal: Yes: Normal Bowel Sounds, Soft Cardiovascular: Yes: Regular Rate and Rhythm JVD: No Heart Sounds: Yes: S1, S2 Extremities: Yes: External Rotation (LLE) Edema: No Integumentary: No: Jaundice Neurological: Yes: Alert, Oriented Psychiatric: No: Agitated Assessment/Plan CXR: no acute process EKG: sinus, PACs, no ischemic changes Preoperative evaluation, hip fracture - s/p fall - no loss of consciousness - ortho evaluation - plan for IM gamma nail - echo pending, if benign findings no further cardiac testing prior to surgery HTN - stable on current meds, continue DM - manage per primary
--- NOTE | 2019-06-20 14:40 | PN ---
Progress Note (short form) - Note Progress Note: Ortho Pt seen and examined s/p left IT fx. Awaiting echo for clearance. Selected Entries 06/20/19 13:56 Temperature 98.3 F Pulse Rate 76 Respiratory 18 Rate Blood Pressure 125/60 Laboratory Tests 06/20/19 09:09 WBC 5.5 Hgb 11.1 Hct 32.0 L Plt Count 94 L LLE- shortened and ER, + ttp, decr rom nvi a/p Echo tomorrow surgical clearance NPO after midnight OR tomorrow for left IM gamma nail if cleared d/w Dr. Farrell
[2019-06-20] MEDS: DOCUSATE SODIUM 100 MG CAPSULE (FP) PO SCH ×2 (14:47→21:36)
[2019-06-20] MEDS: POLYETHYLENE GLYCOL 3350 119 GM BTL PO SCH (14:47)
[2019-06-20] MEDS: LIDOCAINE PATCH REMOVAL MC SCH (21:48)
[2019-06-21] MEDS: DOCUSATE SODIUM 100 MG CAPSULE (FP) PO SCH ×4 (06:08→22:06)
[2019-06-21] MEDS: INSULIN SLIDING SCALE (NOVOLOG) 1 VIAL SQ SCH ×2 (06:08→17:32)
--- NOTE | 2019-06-21 09:32 | PN ---
Physical Exam: SUBJECTIVE: Patient seen and examined at the bedside. reports her pain is more controlled with ultram dosing. reports feeling well and is ready for surgery. PCP: Dr. Yury Diaz OBJECTIVE: patient does not have a diagnosis of COPD. Please remove from all notes. I removed it from zhiwo. Patient is an 83 year old female with PMHx of hypertension, diabetes II (on metformin) depression, hx of ETOH abuse years ago, varical bleeding history and liver cirrhosis. Patient arrived to ED for hip pain post fall. Patient s/p fall at her doctor office where she lost her balance when getting on a scale to be weighed. She unfortunately sustained a left him comm. fracture and is being admitted for surgical evaluation and pain management. She denies headache, dizziness, changes of vision, SOB, chest pain. Patient is not on anticoagulation. Vital Signs Period Temp Pulse Resp BP Sys/Hoang Pulse Ox Last 24 Hr 98.2 F-99.1 F 76-83 18-18 125-144/60-71 95 GENERAL: The patient is awake, alert, and fully oriented, in no acute distress. HEAD: Normal with no signs of trauma. EYES: PERRL, extraocular movements intact, sclera anicteric, conjunctiva clear. No ptosis. ENT: Ears normal, nares patent, oropharynx clear without exudates, moist mucous membranes. NECK: Trachea midline, full range of motion, supple. LUNGS: Breath sounds equal, clear to auscultation bilaterally, no wheezes HEART: Regular rate and rhythm ABDOMEN: Soft, nontender, obese abdomen nondistended, normoactive bowel sounds EXTREMITIES: no edema. NEUROLOGICAL: Normal speech, left hip fx, pain. PSYCH: Normal mood, normal affect. SKIN: Warm, dry, normal turgor, no rashes or lesions noted Laboratory Results - last 24 hr 06/20/19 06/20/19 06/20/19 09:09 09:09 09:09 WBC 5.5 RBC 3.27 L Hgb 11.1 Hct 32.0 L MCV 98.0 H MCH 34.0 H MCHC 34.6 RDW 13.4 Plt Count 94 L MPV 8.1 Absolute Neuts (auto) 3.5 Neutrophils % 62.2 Lymphocytes % 21.5 D Monocytes % 10.0 Eosinophils % 5.5 H D Basophils % 0.8 Nucleated RBC % 0 PT with INR 12.90 INR 1.09 Sodium 131 L Potassium 3.5 Chloride 96 L Carbon Dioxide 27 Anion Gap 8 BUN 16.4 Creatinine 0.9 Est GFR (CKD-EPI)AfAm 69.01 Est GFR (CKD-EPI)NonAf 59.55 POC Glucometer Random Glucose 110 H Calcium 8.5 Magnesium 1.4 L Total Bilirubin 1.6 H AST 26 ALT 16 Alkaline Phosphatase 108 Total Protein 5.7 L Albumin 2.8 L 06/20/19 06/21/19 06/21/19 16:42 00:12 04:30 WBC RBC Hgb Hct MCV MCH MCHC RDW Plt Count MPV Absolute Neuts (auto) Neutrophils % Lymphocytes % Monocytes % Eosinophils % Basophils % Nucleated RBC % PT with INR INR Sodium Potassium Chloride Carbon Dioxide Anion Gap BUN Creatinine Est GFR (CKD-EPI)AfAm Est GFR (CKD-EPI)NonAf POC Glucometer 99 87 87 Random Glucose Calcium Magnesium Total Bilirubin AST ALT Alkaline Phosphatase Total Protein Albumin 06/21/19 08:48 WBC RBC Hgb Hct MCV MCH MCHC RDW Plt Count MPV Absolute Neuts (auto) Neutrophils % Lymphocytes % Monocytes % Eosinophils % Basophils % Nucleated RBC % PT with INR INR Sodium Potassium Chloride Carbon Dioxide Anion Gap BUN Creatinine Est GFR (CKD-EPI)AfAm Est GFR (CKD-EPI)NonAf POC Glucometer 96 Random Glucose Calcium Magnesium Total Bilirubin AST ALT Alkaline Phosphatase Total Protein Albumin Active Medications Generic Name Dose Route Start Last Admin Trade Name Freq PRN Reason Stop Dose Admin Acetaminophen 650 mg 06/18/19 17:29 Tylenol - PO Q6H PRN PAIN LEVEL 6-10 Cholecalciferol 2,000 unit 06/19/19 10:00 06/20/19 09:08 Vitamin D3 - PO 2,000 unit DAILY [facility] Administration Diazepam 5 mg 06/19/19 16:31 Valium - PO Q8H PRN ANXIETY Docusate Sodium 100 mg 06/20/19 14:15 06/21/19 06:08 Colace - PO Not Given TID [facility]AGAR Fluoxetine HCl 20 mg 06/19/19 10:00 06/20/19 09:08 Prozac - PO 20 mg DAILY [facility] Administration Heparin Sodium (Porcine) 5,000 unit 06/18/19 22:00 06/20/19 21:36 Heparin - SQ 5,000 unit BID [facility] Administration Insulin Aspart 1 vial 06/19/19 07:00 06/21/19 06:08 Novolog Vial Sliding Scale - SQ Not Given BIDAC [facility] Protocol Lidocaine 1 patch 06/19/19 12:00 06/20/19 09:08 Lidoderm Patch - TP 1 patch DAILY [facility] Administration Losartan Potassium 50 mg 06/20/19 10:00 06/20/19 09:08 Cozaar - PO 50 mg DAILY [facility] Administration Metoprolol Succinate 50 mg 06/20/19 10:00 06/20/19 09:08 Toprol Xl - PO 50 mg DAILY [facility] Administration Miscellaneous 1 each 06/19/19 22:00 06/20/19 21:48 Lidoderm Patch Removal MC 1 each DAILY@2200 [facility] Administration Polyethylene Glycol 17 gm 06/20/19 14:15 06/20/19 14:47 Miralax (For Daily Use) - PO 17 grams DAILY [facility]AR Administration Tramadol HCl 50 mg 06/20/19 12:26 06/20/19 21:46 Ultram - PO 50 mg Q4H PRN Administration PAIN LEVEL 7 - 10 ASSESSMENT/PLAN: Problem List - Problems (1) Intertrochanteric fracture of left hip Assessment/Plan: patient s/p fall on Friday06/18/2019, lost her balance when she was getting on a scale to be weighed at her PCP office. She was brought into the ED and found to have a left hip/pelvis XR that shows left greater trochanter displaced, non comminuted fracture. continue pain management with ultram and lidocaine patches - increased the frequency of when she gets ultram from q4 from q8 for better pain control and it seems to be working. will add prn morphine x 2 doses as pt is now npo. no other acute fracture on serial imaging ortho to follow patient for surgical evaluation, likely today after echocardiogram. Cardiology clearance prior to surgery on heparin BID, but on hold for surgery pre surgery care: - incentive spirometer - has been kept npo since midnight, NO ivf - bowel regimen - type and screen/pt/inr pending today's labs Code(s): S72.142A - DISPLACED INTERTROCHANTERIC FRACTURE OF LEFT FEMUR, INIT Qualifiers: Encounter type: initial encounter Fracture type: closed Fracture alignment: displaced Qualified Code(s): S72.142A - Displaced intertrochanteric fracture of left femur, initial encounter for closed fracture (2) Cause of injury, fall Assessment/Plan: has left hip fracture initiate PT once more stable. patient wishes to go to [facility] made aware. Code(s): W19.XXXA - UNSPECIFIED FALL, INITIAL ENCOUNTER (3) Hyponatremia Assessment/Plan: fluid restrict 1000cc of fluid. repeat cmp in a.m. awaiting today's labs. Code(s): E87.1 - HYPO-OSMOLALITY AND HYPONATREMIA (4) Diabetes Assessment/Plan: bgms, with novolog ss maintain BGMs < 180 fasting. and monitor closer while npo Code(s): E11.9 - TYPE 2 DIABETES MELLITUS WITHOUT COMPLICATIONS (5) HTN (hypertension) Assessment/Plan: metoprolol 50 daily, cozaar 50mg daily orthostatics once more stable Code(s): I10 - ESSENTIAL (PRIMARY) HYPERTENSION (6) Anxiety Assessment/Plan: valium 5mg tid prn for anxiety Code(s): F41.9 - ANXIETY DISORDER, UNSPECIFIED (7) Prophylactic measure Assessment/Plan: fen tolerating PO monitor electrolytes hyponatremia noted, fluid restriction of 1000cc of fluid. full code Code(s): Z29.9 - ENCOUNTER FOR PROPHYLACTIC MEASURES, UNSPECIFIED Visit type - Emergency Visit Emergency Visit: Yes ED Registration Date: 06/18/19 Care time: The patient presented to the Emergency Department on the above date and was hospitalized for further evaluation of their emergent condition. - New Patient This patient is new to me today: No - Critical Care Critical Care patient: No - Discharge Referral Referred to [facility] Med P.C.: No
[2019-06-21] MEDS ORDERED: MORPHINE SULFATE 2 MG/ML VIAL IVPUSH PRN ×2 (09:43→13:54)
--- NOTE | 2019-06-21 10:29 | CONSULT ---
Consult Consult Specialty:: Podiatry Reason for Consultation:: Hammer toes right foot. Painful elongated thickened toe nails both feet. - History of Present Illness Chief Complaint: Fracture left hip. - History Source History Provided By: Patient - Past Medical History Cardio/Vascular: Yes: HTN Pulmonary: Yes: COPD Hepatobiliary: Yes: Other (liver disease (secondary to EtOH)) ...: No Psych: Yes: Depression Endocrine: Yes: Diabetes Mellitus - Alcohol/Substance Use Hx Alcohol Use: No (stopped 30 years ago) - Smoking History Smoking history: Former smoker Have you smoked in the past 12 months: No Aproximately how many cigarettes per day: 0 If you are a former smoker, when did you quit?: 30 years ago - Social History History of Recent Travel: No Home Medications - Allergies Allergies/Adverse Reactions: Allergies Allergy/AdvReac Type Severity Reaction Status Date / Time Penicillins Allergy Verified 06/18/19 19:57 - Home Medications Home Medications: Ambulatory Orders Metformin HCl [Glucophage] 850 mg PO DAILY 11/21/11 Fluoxetine HCl [Prozac -] 20 mg PO DAILY #0 capsule 12/04/11 Aspirin 81 mg PO Q2D 06/18/19 Atenolol [Tenormin] 50 mg PO DAILY 06/18/19 Celecoxib [Celebrex] 100 mg PO DAILY 06/18/19 Losartan/Hydrochlorothiazide [Losartan-Hctz 50-12.5 mg Tab] PO DAILY 06/18/19 Vitamin D3 2,000 units PO DAILY 06/18/19 Physical Exam Vital Signs: Vital Signs Temperature 98.2 F 06/21/19 06:00 Pulse Rate 80 06/21/19 06:00 Respiratory Rate 18 06/21/19 06:00 Blood Pressure 137/71 06/21/19 06:00 O2 Sat by Pulse Oximetry (%) 95 06/20/19 21:00 Extremities: Yes: Other (vsgi, +increased tg, +hammer toes right foot, +tender dystrophic mycotic nails with debris b/l feet, -cellulitis, -ulceration, -wounds ) Labs: CBC, BMP 06/20/19 09:09 06/20/19 09:09 Assessment/Plan Fracture left lower extremity according to patient Hammer toes Onychomycosis Pt states she is scheduled for surgery. Will debride nails at some point. Foot care q8 weeks. Patient requires diabetic shoes. Will follow.
--- NOTE | 2019-06-21 10:36 | PN ---
Progress Note, Physician Chief Complaint: fall, hip frx History of Present Illness: denies sob, cp here or at home. no presyncope/syncope including when fell no palpit - Current Medication List Current Medications: Active Medications Acetaminophen (Tylenol -) 650 mg PO Q6H PRN PRN Reason: PAIN LEVEL 6-10 Cholecalciferol (Vitamin D3 -) 2,000 unit PO DAILY [facility] Last Admin: 06/20/19 09:08 Dose: 2,000 unit Diazepam (Valium -) 5 mg PO Q8H PRN PRN Reason: ANXIETY Docusate Sodium (Colace -) 100 mg PO TID [facility] Last Admin: 06/21/19 06:08 Dose: Not Given Fluoxetine HCl (Prozac -) 20 mg PO DAILY [facility] Last Admin: 06/20/19 09:08 Dose: 20 mg Heparin Sodium (Porcine) (Heparin -) 5,000 unit SQ BID [facility] Last Admin: 06/20/19 21:36 Dose: 5,000 unit Insulin Aspart ([facility] Vial Sliding Scale -[facility] Protocol Last Admin: 06/21/19 06:08 Dose: Not Given Lidocaine (Lidoderm Patch -) 1 patch TP DAILY [facility] Last Admin: 06/20/19 09:08 Dose: 1 patch Losartan Potassium (Cozaar -) 50 mg PO DAILY [facility] Last Admin: 06/20/19 09:08 Dose: 50 mg Metoprolol Succinate (Toprol Xl -) 50 mg PO DAILY [facility] Last Admin: 06/20/19 09:08 Dose: 50 mg Miscellaneous (Lidoderm Patch Removal) 1 each MC DAILY@2200 [facility] Last Admin: 06/20/19 21:48 Dose: 1 each Morphine Sulfate (Morphine Sulfate) 1 mg IVPUSH Q4H PRN PRN Reason: PAIN LEVEL 7 - 10 Polyethylene Glycol (Miralax (For Daily Use) -) 17 gm PO DAILY [facility] Last Admin: 06/20/19 14:47 Dose: 17 grams Tramadol HCl (Ultram -) 50 mg PO Q4H PRN PRN Reason: PAIN LEVEL 7 - 10 Last Admin: 06/20/19 21:46 Dose: 50 mg - Objective Vital Signs: Vital Signs Temperature 98.2 F 06/21/19 06:00 Pulse Rate 80 06/21/19 06:00 Respiratory Rate 18 06/21/19 06:00 Blood Pressure 137/71 09/23/19 06:00 O2 Sat by Pulse Oximetry (%) 95 06/20/19 21:00 Constitutional: Yes: Well Nourished, No Distress, Calm Cardiovascular: Yes: Regular Rate and Rhythm, S1, S2. No: JVD, Gallop, Murmur Respiratory: Yes: Regular, CTA Bilaterally. No: Accessory Muscle Use, Rales, Wheezes Extremities: No: Cold Edema: No Neurological: Yes: Alert, Oriented Psychiatric: No: Agitated Labs: CBC, BMP 06/20/19 09:09 06/20/19 09:09 INR, PTT INR 1.09 (0.83-1.09) 06/20/19 09:09 Assessment/Plan CXR: no acute process EKG: sinus, PACs, no ischemic changes Preoperative evaluation, hip fracture - s/p fall - no loss of consciousness or suspected CV sx's (fall sec to leg weakness) - ortho evaluation - plan for IM gamma nail - unknown functional status at home - RCRI = 0. no s/sx of active CV dz. - seems low risk for CV complications of planned surgery. echo was done this AM , doubt will change risk stratification however seems prudent to wait on surgery until results available HTN - stable on current meds, continue DM - manage per primary NO INDICATION FOR CONTINUED TELE MONITOR--D/C
[2019-06-21] MEDS: LOSARTAN POTASSIUM 50 MG TABLET (FP) PO SCH (10:46)
[2019-06-21] MEDS: LIDOCAINE 5% TOPICAL PATCH TP SCH (10:46)
[2019-06-21] MEDS: POLYETHYLENE GLYCOL 3350 119 GM BTL PO SCH (10:51)
[2019-06-21] MEDS: CHOLECALCIFEROL (VIT D3) 1,000 UNIT (25 MCG) TABLET PO SCH (10:51)
[2019-06-21] MEDS: FLUoxetine HCL 20 MG CAPSULE (FP) PO SCH (10:51)
[2019-06-21 11:50] LABS: BASO % 0.3 % (0-2.0); EOS % 3.3 % (0-4.5); HEMOGLOBIN 11.2 GM/dL (10.7-15.3); LYMPH % 14.7 % (8-40); MCH 33.4 pg (25.7-33.7); MEAN CELL VOLUME 98.2 fl (80-96); MONO % 11.7 % (3.8-10.2); PLATELET COUNT 114 K/MM3 (134-434); RBC 3.36 M/mm3 (3.60-5.2); RDW 13.1 % (11.6-15.6); WHITE BLOOD COUNT 6.4 K/mm3 (4.0-10.0)
[2019-06-21 12:06] LABS: INR 1.08 (0.83-1.09); PROTHROMBIN TIME (PATIENT) 12.7 SEC (9.7-13.0)
[2019-06-21 12:18] LABS: ALBUMIN 2.7 g/dl (3.4-5.0); BILIRUBIN,TOTAL 1.9 mg/dL (0.2-1); BLOOD UREA NITROGEN 17.9 mg/dL (7-18); CALCIUM 8.2 mg/dL (8.5-10.1); CREATININE 0.8 mg/dL (0.55-1.3); MAGNESIUM 1.5 mg/dL (1.8-2.4); POTASSIUM 3.7 mmol/L (3.5-5.1); TOT PROT 5.6 g/dl (6.4-8.2)
[2019-06-21] MEDS ORDERED: MAGNESIUM SULF 50% (8.12 MEQ/2 ML-1 GM VIAL) IVPB ONE (12:26)
--- NOTE | 2019-06-21 12:53 | ECHO ---
Name: MAX LOPEZ Exam:Adult Echocardiogram Study Date: 06/21/2019 10:52 AM Age: 83 yrs Reason For Study: SURGERY CLEARNACE Height: 63 in Weight: 164 lb BSA: 1.8 m2 MMode/2D Measurements & Calculations IVSd: 0.99 cm Ao root diam: 2.9 cm LVIDd: 3.0 cm LA dimension: 3.8 cm LVIDs: 2.1 cm LVPWd: 1.3 cm LVPWs: 1.8 cm EDV(Teich): 36.3 ml ESV(Jaspal): 14.7 ml TAPSE: 0.87 cm RV S Juancho: 17.6 cm/sec Doppler Measurements & Calculations MV E max juancho: 148.6 cm/sec Ao V2 max: 176.5 cm/sec MV A max juancho: 114.0 cm/sec Ao max P.5 mmHg MV E/A: 1.3 Ao V2 mean: 114.4 cm/sec MV dec time: 0.11 sec Ao mean P.2 mmHg Ao V2 VTI: 35.7 cm LV V1 max P.4 mmHg TR max juancho: 343.0 cm/sec LV V1 mean P.9 mmHg TR max P.1 mmHg LV V1 max: 126.9 cm/sec RVSP(TR): 57.1 mmHg LV V1 mean: 77.1 cm/sec LV V1 VTI: 24.7 cm PA V2 max: 96.1 cm/sec Med Peak E' Juancho: 7.0 cm/sec PA max P.7 mmHg Med E/e': 21.2 Lat Peak E' Juancho: 7.9 cm/sec Lat E/e': 18.8 RAP systole: 10.0 mmHg Procedure A complete two-dimensional transthoracic echocardiogram was performed (2D, M-mode, Doppler and color flow Doppler). Left Ventricle The left ventricle is normal in size. Left ventricular systolic function is normal. Ejection Fraction = 60- 65%. No regional wall motion abnormalities noted. Right Ventricle The right ventricle is normal size. The right ventricular systolic function is normal. RV systolic TD I is 18 cm/s. Atria The left atrial size is normal. Right atrial size is normal. Mitral Valve The mitral valve is normal in structure and function. There is mild mitral regurgitation. Tricuspid Valve The tricuspid valve is normal in structure and function. There is moderate tricuspid regurgitation. P ulmonary artery systolic pressure is at least 55 mmHg assuming RA pressure of 3 mmHg. Aortic Valve There is mild aortic sclerosis.;. No aortic regurgitation is present. Pulmonic Valve The pulmonic valve is not well visualized. Great Vessels The aortic root is normal size. Pericardium/Pleura There is no pericardial effusion. Interpretation Summary The left ventricle is normal in size. Left ventricular systolic function is normal. No regional wall motion abnormalities noted. Ejection Fraction = 60-65%. The right ventricular systolic function is normal. The left atrial size is normal. Right atrial size is normal. There is mild mitral regurgitation. There is moderate tricuspid regurgitation. Pulmonary artery systolic pressure is at least 55 mmHg assuming RA pressure of 3 mmHg There is mild aortic sclerosis. There is no pericardial effusion. Rivera Bhardwaj MD 06/21/2019 12:53 PM
[2019-06-21] MEDS ORDERED: traMADol HCL 50 MG TABLET PO PRN (13:54)
[2019-06-21] MEDS ORDERED: diazePAM 5 MG TABLET PO PRN (13:54)
[2019-06-21] MEDS ORDERED: ACETAMINOPHEN 325 MG TABLET (FP) PO PRN (13:54)
--- NOTE | 2019-06-21 19:02 | PN ---
Progress Note (short form) - Note Progress Note: Apparently O.R. could not schedule surgery until 1:30 a.m. martin, so surgery has been postponed until tomorrow. Discussed with Dr Parikh, patient and her family.
[2019-06-21] MEDS ORDERED: LIDOCAINE PATCH REMOVAL MC SCH ×2 (22:00)
[2019-06-21] MEDS ORDERED: HEPARIN NA (PORCINE) 5,000 UNITS/ML 1ML VIAL SQ SCH ×2 (22:00)
[2019-06-22] MEDS: INSULIN SLIDING SCALE (NOVOLOG) 1 VIAL SQ SCH ×2 (06:40→19:07)
[2019-06-22] MEDS: DOCUSATE SODIUM 100 MG CAPSULE (FP) PO SCH ×3 (06:40→23:53)
--- NOTE | 2019-06-22 07:45 | PN ---
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 Patient s/p fall at 10:30am went to her doctor office where she felt legs give way, fell down on left hip, also hit her left temporal head. Currently complaining of Left hip pain 05/08. Patient denies numbness, tingling. Denies fever, headache, dizziness, changes of vision, SOB, chest pain. Patient is not on anticoagulation. - Current Medication List Current Medications: Active Medications Acetaminophen (Tylenol -) 650 mg PO Q6H PRN PRN Reason: PAIN LEVEL 6-10 Cholecalciferol (Vitamin D3 -) 2,000 unit PO DAILY [facility] Diazepam (Valium -) 5 mg PO Q8H PRN PRN Reason: ANXIETY Docusate Sodium (Colace -) 100 mg PO TID [facility] Last Admin: 06/22/19 06:40 Dose: Not Given Fluoxetine HCl (Prozac -) 20 mg PO DAILY [facility] Insulin Aspart (Novolog Vial Sliding Scale -) 1 vial SQ BIDAC [facility]; Protocol Last Admin: 06/22/19 06:40 Dose: Not Given Lidocaine (Lidoderm Patch -) 1 patch TP DAILY [facility] Losartan Potassium (Cozaar -) 50 mg PO DAILY [facility] Metoprolol Succinate (Toprol Xl -) 50 mg PO DAILY [facility] Miscellaneous (Lidoderm Patch Removal) 1 each MC DAILY@2200 [facility] Last Admin: 06/21/19 21:47 Dose: Not Given Morphine Sulfate (Morphine Sulfate) 1 mg IVPUSH Q4H PRN PRN Reason: PAIN LEVEL 7 - 10 Polyethylene Glycol (Miralax (For Daily Use) -) 17 gm PO DAILY [facility] Tramadol HCl (Ultram -) 50 mg PO Q4H PRN PRN Reason: PAIN LEVEL 7 - 10 Last Admin: 06/21/19 20:12 Dose: 50 mg - Objective Vital Signs: Vital Signs Temperature 98.1 F 06/22/19 06:00 Pulse Rate 79 06/22/19 06:00 Respiratory Rate 18 06/22/19 06:00 Blood Pressure 137/67 06/22/19 06:00 O2 Sat by Pulse Oximetry (%) 95 06/21/19 21:00 Constitutional: Yes: Well Nourished, No Distress, Anxious (regarding surgery today) Eyes: Yes: WNL, Conjunctiva Clear HENT: Yes: WNL, Atraumatic, Normocephalic Neck: Yes: WNL, Supple, Trachea Midline Cardiovascular: Yes: WNL, Regular Rate and Rhythm Respiratory: Yes: WNL, Regular, CTA Bilaterally Gastrointestinal: Yes: WNL, Normal Bowel Sounds ...Rectal Exam: Yes: Deferred Genitourinary: Yes: WNL Breast(s): Yes: WNL Musculoskeletal: Yes: Other (left hip pain) Extremities: Yes: WNL Edema: No Peripheral Pulses WNL: Yes Peripheral Pulses: Left Radial: 2+, Right Radial: 2+, Left Doralis Pedis: 2+, Right Dorsalis Pedis: 2+, Left Femoral: 2+, Right Femoral: 2+ Integumentary: Yes: WNL Neurological: Yes: WNL, Alert, Oriented ...Motor Strength: RLE (decreased secondary to pain) Psychiatric: Yes: WNL Labs: CBC, BMP 06/21/19 11:30 06/21/19 11:30 INR, PTT INR 1.08 (0.83-1.09) 06/21/19 11:30 - ....Imaging X-ray: Report Reviewed (left displaced IT fx) EKG: Report Reviewed (APCs, QTc 426) Other: Report Reviewed (TTE:nl LVEF. nl RVSF. mod TR. RVSP is at least 55 mmHg. this RVSP is moderately elevated, with no signs of RV dilation or dysfunction and no attributable sx's.) Problem List - Problems (1) Depression Assessment/Plan: c/w prozac when no longer NPO emotional support provided Code(s): F32.9 - MAJOR DEPRESSIVE DISORDER, SINGLE EPISODE, UNSPECIFIED (2) Cirrhosis, alcoholic Assessment/Plan: last drink > 30 years ago Code(s): K70.30 - ALCOHOLIC CIRRHOSIS OF LIVER WITHOUT ASCITES (3) Diabetes Assessment/Plan: BGM qAC/HS with novolog sliding scale diabetic diet when eating Code(s): E11.9 - TYPE 2 DIABETES MELLITUS WITHOUT COMPLICATIONS (4) HTN (hypertension) Assessment/Plan: normotensive c/w elisa trejo Code(s): I10 - ESSENTIAL (PRIMARY) HYPERTENSION (5) Prophylactic measure Assessment/Plan: FEN NPO for OR diabetic diet when eating monitor electrolytes DVT chemical anticoagulation as per Ortho post-operatively Dispo maintain as in patient full code discharge planning Code(s): Z29.9 - ENCOUNTER FOR PROPHYLACTIC MEASURES, UNSPECIFIED (6) Hyponatremia Assessment/Plan: Na 131 chronic use of hctz NPO presently but will limit free water to 1000cc/day until improves Code(s): E87.1 - HYPO-OSMOLALITY AND HYPONATREMIA (7) Intertrochanteric fracture of left hip Assessment/Plan: left IM gamma nail palled for today c/w lidoderm patches ans PRN MSO4 on heparin BID prior , but on hold for surgery Code(s): S72.142A - DISPLACED INTERTROCHANTERIC FRACTURE OF LEFT FEMUR, INIT Qualifiers: Encounter type: initial encounter Fracture type: closed Fracture alignment: displaced Qualified Code(s): S72.142A - Displaced intertrochanteric fracture of left femur, initial encounter for closed fracture (8) Hammer toe Assessment/Plan: Seen by podiatry plan for debridement of nails when medically stable Foot care q8 weeks after discharge Patient requires diabetic shoes on discharge Code(s): M20.40 - OTHER HAMMER TOE(S) (ACQUIRED), UNSPECIFIED FOOT Visit type - Emergency Visit Emergency Visit: Yes ED Registration Date: 06/18/19 Care time: The patient presented to the Emergency Department on the above date and was hospitalized for further evaluation of their emergent condition. - New Patient This patient is new to me today: Yes Date on this admission: 06/22/19 - Critical Care Critical Care patient: No - Discharge Referral Referred to [facility] Med P.C.: No
[2019-06-22] MEDS ORDERED: FLUoxetine HCL 20 MG CAPSULE (FP) PO SCH (10:00)
[2019-06-22] MEDS ORDERED: LIDOCAINE 5% TOPICAL PATCH TP SCH (10:00)
[2019-06-22] MEDS ORDERED: LOSARTAN POTASSIUM 50 MG TABLET (FP) PO SCH (10:00)
[2019-06-22] MEDS ORDERED: CHOLECALCIFEROL (VIT D3) 1,000 UNIT (25 MCG) TABLET PO SCH (10:00)
[2019-06-22] MEDS ORDERED: POLYETHYLENE GLYCOL 3350 119 GM BTL PO SCH (10:00)
--- NOTE | 2019-06-22 10:42 | PN ---
Progress Note (short form) - Note Progress Note: s: no chest pain, palps, dizziness, dyspnea Current Medications Acetaminophen (Tylenol -) 650 mg PO Q6H PRN PRN Reason: PAIN LEVEL 6-10 Cholecalciferol (Vitamin D3 -) 2,000 unit PO DAILY [facility] Last Admin: 06/22/19 09:36 Dose: 2,000 unit Diazepam (Valium -) 5 mg PO Q8H PRN PRN Reason: ANXIETY Docusate Sodium (Colace -) 100 mg PO TID [facility] Last Admin: 06/22/19 06:40 Dose: Not Given Fluoxetine HCl (Prozac -) 20 mg PO DAILY [facility] Last Admin: 06/22/19 09:37 Dose: 20 mg Insulin Aspart (Novolog Vial Sliding Scale -) 1 vial SQ BIDAC [facility]; Protocol Last Admin: 06/22/19 06:40 Dose: Not Given Lidocaine (Lidoderm Patch -) 1 patch TP DAILY [facility] Last Admin: 06/22/19 09:37 Dose: 1 patch Losartan Potassium (Cozaar -) 50 mg PO DAILY [facility] Last Admin: 06/22/19 09:37 Dose: 50 mg Metoprolol Succinate (Toprol Xl -) 50 mg PO DAILY [facility] Last Admin: 06/22/19 09:37 Dose: 50 mg Miscellaneous (Lidoderm Patch Removal) 1 each MC DAILY@2200 [facility] Last Admin: 06/21/19 21:47 Dose: Not Given Morphine Sulfate (Morphine Sulfate) 1 mg IVPUSH Q4H PRN PRN Reason: PAIN LEVEL 7 - 10 Polyethylene Glycol (Miralax (For Daily Use) -) 17 gm PO DAILY [facility] Last Admin: 06/22/19 09:38 Dose: Not Given Tramadol HCl (Ultram -) 50 mg PO Q4H PRN PRN Reason: PAIN LEVEL 7 - 10 Last Admin: 06/21/19 20:12 Dose: 50 mg Vital Signs Period Temp Pulse Resp BP Sys/Hoang Pulse Ox Last 24 Hr 98.1 F-99.0 F 71-86 18-20 117-156/56-80 95 Constitutional: Yes: Well Nourished, No Distress, Calm Cardiovascular: Yes: Regular Rate and Rhythm, S1, S2. No: JVD, Gallop, Murmur Respiratory: Yes: Regular, CTA Bilaterally. No: Accessory Muscle Use, Rales, Wheezes Extremities: No: Cold Edema: No Neurological: Yes: Alert, Oriented Psychiatric: No: Agitated Assessment/Plan CXR: no acute process EKG: sinus, PACs, no ischemic changes echo 05/2019 nl LVEF. nl RVSF. mod TR. RVSP is at least 55 mmHg. Preoperative evaluation, hip fracture - s/p fall - no loss of consciousness or suspected CV sx's (fall sec to leg weakness) - ortho evaluation - plan for IM gamma nail - unknown functional status at home - RCRI = 0. no s/sx of active CV dz. - she is acceptable CV risk to proceed with planned surgery/sedation and anesthesia HTN - stable on current meds, continue DM - manage per primary
[2019-06-22 12:31] LABS: BASO % 0.5 % (0-2.0); EOS % 3.8 % (0-4.5); HEMATOCRIT 31.8 % (32.4-45.2); HEMOGLOBIN 10.9 GM/dL (10.7-15.3); LYMPH % 18.9 % (8-40); MCH 33.9 pg (25.7-33.7); MCHC 34.5 g/dl (32.0-36.0); MEAN CELL VOLUME 98.2 fl (80-96); MEAN PLT VOLUME 7.4 fl (7.5-11.1); MONO % 11.9 % (3.8-10.2); NEUT % 64.9 % (42.8-82.8); PLATELET COUNT 138 K/MM3 (134-434); RBC 3.23 M/mm3 (3.60-5.2); RDW 13.1 % (11.6-15.6); WHITE BLOOD COUNT 6.6 K/mm3 (4.0-10.0)
[2019-06-22 12:44] LABS: INR 1.07 (0.83-1.09); PROTHROMBIN TIME (PATIENT) 12.6 SEC (9.7-13.0)
[2019-06-22 13:03] LABS: ALBUMIN 2.6 g/dl (3.4-5.0); BLOOD UREA NITROGEN 20.3 mg/dL (7-18); CALCIUM 8.3 mg/dL (8.5-10.1); CREATININE 0.7 mg/dL (0.55-1.3); MAGNESIUM 1.8 mg/dL (1.8-2.4); POTASSIUM 3.6 mmol/L (3.5-5.1); TOT PROT 5.4 g/dl (6.4-8.2)
[2019-06-22] MEDS ORDERED: DEXTROSE 5%-NORMAL SALINE 1,000 ML IV SCH ×2 (15:45→19:48)
[2019-06-22] MEDS ORDERED: ONDANSETRON 4 MG/2 ML VIAL IVPUSH PRN ×2 (16:27→19:48)
[2019-06-22] MEDS ORDERED: PROMETHAZINE HCL 25 MG/1 ML VIAL IVPUSH PRN ×2 (16:27→19:48)
[2019-06-22] MEDS ORDERED: LACTATED RINGERS SOLUTION 1,000 ML IV SCH ×2 (16:45→19:48)
[2019-06-22] MEDS ORDERED: BUPIVACAINE HCL/PF 0.5% (5 MG/ML) 30 ML VIAL IJ ONE (16:51)
[2019-06-22] MEDS ORDERED: MIDAZOLAM HCL 2 MG/2 ML SINGLE DOSE VIAL ONE (16:56)
[2019-06-22] MEDS ORDERED: CLINDAMYCIN 900 MG PREMIX BAG IVPB ONE (17:15)
[2019-06-22] MEDS ORDERED: CLINDAMYCIN PHOSPHATE 600 MG/4 ML VIAL ONE (17:28)
--- NOTE | 2019-06-22 18:42 | OP ---
Operative Note - Note: Operative Date: 06/22/19 Pre-Operative Diagnosis: left femur intertrochanteric hip fracture Operation: left femur intramedullary nail/Gamma Nail Implants: Sonoita G3 Gamma Nail, 120 degrees, 95mm lag screw, 37.5mm distal screw Surgeon: Prudencio Farrell Anesthesiologist/FLAT LOCKER: Micaela Mayfield Anesthesia: General Estimated Blood Loss (mls): 150 Drains, Volume Out (mls): 0 Blood Volume Replaced (mls): 0 Fluid Volume Replaced (mls): 700 Operative Report Dictated: Yes
[2019-06-22] MEDS ORDERED: ACETAMINOPHEN 325 MG TABLET (FP) PO PRN (19:48)
[2019-06-22] MEDS ORDERED: diazePAM 5 MG TABLET PO PRN (19:48)
[2019-06-22] MEDS ORDERED: MORPHINE SULFATE 2 MG/ML VIAL IVPUSH PRN (19:48)
--- NOTE | 2019-06-22 21:57 | SPEC ---
DATE OF OPERATION: 06/22/2019 PREOPERATIVE DIAGNOSIS: Left hip 4-part intertrochanteric hip fracture. POSTOPERATIVE DIAGNOSIS: Left hip 4-part intertrochanteric hip fracture. PROCEDURE: Left femur intramedullary nail/Gamma nail. SURGEON: Kana Davis MD ASSISTANTS: None. ANESTHESIA: General. IMPLANTS: Damon Gamma G3 titanium, 120-degree intramedullary ashley with a 95-mm lag screw, proximal set screw, and a 37.5-mm distal interlocking screw. BLOOD LOSS: 150 mL. BLOOD GIVEN: None. FLUID REPLACEMENT: Plasma-Lyte 700 mL. DRAINS: None. COMPLICATIONS: None. This patient is an 83-year-old female with a preoperative diagnosis of a left femur 4-part intertrochanteric hip fracture. After understanding the potential risks, complications, alternatives, and benefits of surgery versus nonsurgical treatment, the patient elected to undergo this procedure. PROCEDURE: Patient was brought to the operating room. Peripheral IV placed, IV sedation given. One gram of IV Ancef was given. General anesthesia was induced. The patient had ample Webril placed around the peroneal post in both ankles. The patient was placed onto the fracture table with a slight longitudinal traction and internal rotation. X-rays were taken documenting excellent reduction of the fracture in the AP and lateral planes. Next, an incision was made over the proximal aspect of the greater trochanter. Subcutaneous hemostasis was achieved with a Bovie cautery, dissection done through the lateral fascia to the top of the greater trochanter. A Voss elevator was used to take off the soft tissue from the starting point. Under direct visualization a partially threaded guide-wire was placed through the standard starting position, into the proximal femur, passed the fracture fragment into the medullary canal. It was documented to be in excellent position in AP, lateral and multiple oblique planes. Next, we used the proximal 17 mm cannulated reamer and put in a standard titanium Divernon Gamma 3 125 degree, 180 mm trochanteric nail. This was put in cannulated fashion to appropriate depth and using the external guide in a standard fashion, first using external jig, using a threaded guide-wire, replaced the lag screw, guide pin to the lateral aspect of the femur. The prosthesis and up to the femoral neck and head, looked to be in excellent position in a center central position, perhaps slightly posterior and slightly inferior in both AP and lateral planes. We measured it at an 80 mm screw. The cannulated drill was used to drill it to this leg and then we put in an 80 mm titanium lag screw. We achieved excellent compression and overall the position of the hardware in the fracture fragments looked excellent. We locked it in place with a proximal set screw, we altered the external jig to the static position and using the standard technique put in a distal interlocking screw under direct visualization of 30 mm in length. This locked the nail distally. We removed the external jig. We repeated x-rays in AP, lateral and multiple oblique planes and overall I was quite happy with the position of the fracture reduction, the length of the screw, the position of the hardware. Final x-rays were taken. The area was copiously irrigated and washed out. The deep fascial layer was closed with 0 Vicryl sutures. The deep dermal layer was closed with 2-0 Vicryl. Final skin approximation was done with yolanda. The area was then washed and dried, covered with Xeroform gauze, 4 x 4 gauze, ABD and tape. Patient was taken down off the fracture table in stable condition. There were no complications during the case. Total operative time was about 50 minutes. Blood loss was 150 mL, and she tolerated the procedure quite well. She was brought to the regular recovery room in stable condition without any problems or cardiovascular. KANA DAVIS M.D. [id number]
[2019-06-22] MEDS ORDERED: LIDOCAINE PATCH REMOVAL MC SCH (22:00)
[2019-06-22] MEDS ORDERED: CEFAZOLIN 2 GM/D5W 2 GM/50 ML ML IVPB SCH ×2 (23:00)
[2019-06-22] MEDS: SODIUM CHLORIDE 1,000 ML IV SCH (23:52)
[2019-06-22] MEDS: LIDOCAINE PATCH REMOVAL MC SCH (23:53)
[2019-06-22] MEDS: CLINDAMYCIN 600MG PREMIX IVPB 600 MG/50 ML BAG IVPB SCH (23:53)
[2019-06-23] MEDS: traMADol HCL 50 MG TABLET PO PRN ×2 (00:07→23:07)
[2019-06-23] MEDS: CLINDAMYCIN 600MG PREMIX IVPB 600 MG/50 ML BAG IVPB SCH ×2 (06:10→14:45)
[2019-06-23] MEDS: DOCUSATE SODIUM 100 MG CAPSULE (FP) PO SCH ×3 (06:11→21:23)
[2019-06-23] MEDS: INSULIN SLIDING SCALE (NOVOLOG) 1 VIAL SQ SCH ×2 (06:11→17:14)
[2019-06-23 06:12] LABS: HEMATOCRIT 28.2 % (32.4-45.2); HEMOGLOBIN 9.8 GM/dL (10.7-15.3); MCH 34.4 pg (25.7-33.7); MCHC 34.8 g/dl (32.0-36.0); MEAN CELL VOLUME 98.8 fl (80-96); MEAN PLT VOLUME 7.4 fl (7.5-11.1); PLATELET COUNT 169 K/MM3 (134-434); RBC 2.86 M/mm3 (3.60-5.2); RDW 13.4 % (11.6-15.6)
[2019-06-23 06:36] LABS: BLOOD UREA NITROGEN 21.1 mg/dL (7-18); CALCIUM 7.6 mg/dL (8.5-10.1); CREATININE 0.7 mg/dL (0.55-1.3); POTASSIUM 3.7 mmol/L (3.5-5.1)
--- NOTE | 2019-06-23 07:31 | PN ---
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 Patient s/p fall at 10:30am went to her doctor office where she felt legs give way, fell down on left hip, also hit her left temporal head. Currently complaining of Left hip pain 8/. Patient denies numbness, tingling. Denies fever, headache, dizziness, changes of vision, SOB, chest pain. Patient is not on anticoagulation. - Current Medication List Current Medications: Active Medications Acetaminophen (Tylenol -) 650 mg PO Q6H PRN PRN Reason: PAIN LEVEL 6-10 Cholecalciferol (Vitamin D3 -) 2,000 unit PO DAILY [facility] Diazepam (Valium -) 5 mg PO Q8H PRN PRN Reason: ANXIETY Docusate Sodium (Colace -) 100 mg PO TID [facility] Last Admin: 06/23/19 06:11 Dose: 100 mg Enoxaparin Sodium (Lovenox -) 40 mg SQ DAILY [facility] Fentanyl (Sublimaze Injection -) 50 mcg IVPUSH [id number] PRN PRN Reason: PAIN-PACU ORDER X 4 DOSES ONLY Fluoxetine HCl (Prozac -) 20 mg PO DAILY [facility] Clindamycin Phosphate (Cleocin 600 Mg Premix Ivpb -) 600 mg in 50 mls @ 100 mls /hr IVPB Q8H [facility] Stop: 06/23/19 15:29 Last Admin: 06/23/19 06:10 Dose: 100 mls/hr Sodium Chloride (Normal Saline -) 1,000 mls @ 42 mls/hr IV ASDIR [facility] Last Admin: 06/22/19 23:52 Dose: 42 mls/hr Insulin Aspart (Novolog Vial Sliding Scale -) 1 vial SQ BIDAC [facility]; Protocol Last Admin: 06/23/19 06:11 Dose: Not Given Lidocaine (Lidoderm Patch -) 1 patch TP DAILY [facility] Losartan Potassium (Cozaar -) 50 mg PO DAILY [facility] Metoprolol Succinate (Toprol Xl -) 50 mg PO DAILY [facility] Miscellaneous (Lidoderm Patch Removal) 1 each MC DAILY@2200 [facility] Last Admin: 06/22/19 23:53 Dose: Not Given Morphine Sulfate (Morphine Sulfate) 1 mg IVPUSH Q4H PRN PRN Reason: PAIN LEVEL 7 - 10 Ondansetron HCl (Zofran Injection) 4 mg IVPUSH Q6H PRN PRN Reason: NAUSEA AND/OR VOMITING Polyethylene Glycol (Miralax (For Daily Use) -) 17 gm PO DAILY [facility] Promethazine HCl (Phenergan Injection -) 12.5 mg IVPUSH Q6H PRN PRN Reason: NAUSEA-FOR RESCUE AFTER 15 MIN Tramadol HCl (Ultram -) 50 mg PO Q4H PRN PRN Reason: PAIN LEVEL 7 - 10 Last Admin: 06/23/19 00:07 Dose: 50 mg - Objective Vital Signs: Vital Signs Temperature 97.5 F L 06/23/19 01:00 Pulse Rate 74 06/23/19 01:00 Respiratory Rate 16 06/23/19 01:00 Blood Pressure 120/59 L 06/23/19 01:00 O2 Sat by Pulse Oximetry (%) 96 06/22/19 21:00 Constitutional: Yes: Well Nourished, No Distress, Calm Eyes: Yes: WNL, Conjunctiva Clear HENT: Yes: WNL, Atraumatic, Normocephalic Neck: Yes: WNL, Supple, Trachea Midline Cardiovascular: Yes: WNL, Regular Rate and Rhythm Respiratory: Yes: WNL, Regular, CTA Bilaterally Gastrointestinal: Yes: WNL, Normal Bowel Sounds ...Rectal Exam: Yes: Deferred Genitourinary: Yes: WNL Breast(s): Yes: WNL Musculoskeletal: Yes: Joint Stiffness (left), Muscle Weakness Extremities: Yes: Other (S?P IM nailing left) Edema: No Peripheral Pulses WNL: No Peripheral Pulses: Left Radial: 2+, Right Radial: 2+, Left Doralis Pedis: 2+, Right Dorsalis Pedis: 2+, Left Femoral: 2+, Right Femoral: 2+ Integumentary: Yes: WNL Wound/Incision: Yes: Clean/Dry, Dressing Dry and Intact (left hip) Neurological: Yes: WNL, Alert, Oriented ...Motor Strength: WNL Psychiatric: Yes: WNL Labs: CBC, BMP 06/23/19 05:00 06/23/19 05:00 INR, PTT INR 1.07 (0.83-1.09) 06/22/19 12:13 Problem List - Problems (1) Depression Assessment/Plan: c/w prozac emotional support provided Code(s): F32.9 - MAJOR DEPRESSIVE DISORDER, SINGLE EPISODE, UNSPECIFIED (2) Cirrhosis, alcoholic Assessment/Plan: last drink > 30 years ago Code(s): K70.30 - ALCOHOLIC CIRRHOSIS OF LIVER WITHOUT ASCITES (3) Diabetes Assessment/Plan: BGM qAC/HS with novolog sliding scale diabetic diet Code(s): E11.9 - TYPE 2 DIABETES MELLITUS WITHOUT COMPLICATIONS (4) HTN (hypertension) Assessment/Plan: normotensive c/w cozaar, toprol Code(s): I10 - ESSENTIAL (PRIMARY) HYPERTENSION (5) Prophylactic measure Assessment/Plan: FEN diabetic diet monitor electrolytes DVT lovenox Dispo maintain as in patient full code discharge planning to rehab Code(s): Z29.9 - ENCOUNTER FOR PROPHYLACTIC MEASURES, UNSPECIFIED (6) Hyponatremia Assessment/Plan: Na 134 chronic use of hctz limit free water to 1500cc/day Code(s): E87.1 - HYPO-OSMOLALITY AND HYPONATREMIA (7) Intertrochanteric fracture of left hip Assessment/Plan: POD#1 left IM nailing c/w lidoderm patches and PRN MSO4 c/w lovenox Code(s): S72.142A - DISPLACED INTERTROCHANTERIC FRACTURE OF LEFT FEMUR, INIT Qualifiers: Encounter type: initial encounter Fracture type: closed Fracture alignment: displaced Qualified Code(s): S72.142A - Displaced intertrochanteric fracture of left femur, initial encounter for closed fracture (8) Hammer toe Assessment/Plan: Seen by podiatry plan for debridement of nails when medically stable Foot care q8 weeks after discharge Patient requires diabetic shoes on discharge Code(s): M20.40 - OTHER HAMMER TOE(S) (ACQUIRED), UNSPECIFIED FOOT Visit type - Emergency Visit Emergency Visit: Yes ED Registration Date: 06/18/19 Care time: The patient presented to the Emergency Department on the above date and was hospitalized for further evaluation of their emergent condition. - New Patient This patient is new to me today: No - Critical Care Critical Care patient: No - Discharge Referral Referred to [facility] Med P.C.: No
[2019-06-23 08:32] LABS: BASO % 0.5 % (0-2.0); EOS % 2.6 % (0-4.5); HEMATOCRIT 27.4 % (32.4-45.2); HEMOGLOBIN 9.5 GM/dL (10.7-15.3); MCH 34.1 pg (25.7-33.7); MCHC 34.6 g/dl (32.0-36.0); MEAN CELL VOLUME 98.6 fl (80-96); MONO % 12.2 % (3.8-10.2); NEUT % 74.7 % (42.8-82.8); PLATELET COUNT 159 K/MM3 (134-434); RBC 2.78 M/mm3 (3.60-5.2); RDW 13.3 % (11.6-15.6); WHITE BLOOD COUNT 7.1 K/mm3 (4.0-10.0)
[2019-06-23 09:02] LABS: ALBUMIN 2.3 g/dl (3.4-5.0); BILIRUBIN,TOTAL 1.7 mg/dL (0.2-1); BLOOD UREA NITROGEN 21.5 mg/dL (7-18); CALCIUM 8.1 mg/dL (8.5-10.1); CREATININE 0.8 mg/dL (0.55-1.3); MAGNESIUM 1.8 mg/dL (1.8-2.4); POTASSIUM 3.5 mmol/L (3.5-5.1)
[2019-06-23] MEDS ORDERED: PT OWN MED DRAWER 7, Y5N ONE (09:40)
[2019-06-23] MEDS ORDERED: ENOXAPARIN NA (PORCINE) 40 MG/0.4 ML DISP.SYRIN SQ SCH (10:00)
[2019-06-23] MEDS: ENOXAPARIN NA (PORCINE) 40 MG/0.4 ML DISP.SYRIN SQ SCH (10:08)
[2019-06-23] MEDS: LOSARTAN POTASSIUM 50 MG TABLET (FP) PO SCH (10:08)
[2019-06-23] MEDS: FLUoxetine HCL 20 MG CAPSULE (FP) PO SCH (10:08)
[2019-06-23] MEDS: CHOLECALCIFEROL (VIT D3) 1,000 UNIT (25 MCG) TABLET PO SCH (10:08)
[2019-06-23] MEDS: LIDOCAINE 5% TOPICAL PATCH TP SCH (10:08)
[2019-06-23 10:29] LABS: INR 1.09 (0.83-1.09); PROTHROMBIN TIME (PATIENT) 12.9 SEC (9.7-13.0)
[2019-06-23] MEDS: POLYETHYLENE GLYCOL 3350 119 GM BTL PO SCH (10:31)
--- NOTE | 2019-06-23 10:57 | PN ---
Progress Note (short form) - Note Progress Note: s: no chest pain, palps, dizziness, dyspnea. POD1 L IM gamma nail for hip fx Current Medications Acetaminophen (Tylenol -) 650 mg PO Q6H PRN PRN Reason: PAIN LEVEL 6-10 Cholecalciferol (Vitamin D3 -) 2,000 unit PO DAILY [facility] Last Admin: 06/23/19 10:08 Dose: 2,000 unit Diazepam (Valium -) 5 mg PO Q8H PRN PRN Reason: ANXIETY Docusate Sodium (Colace -) 100 mg PO TID [facility] Last Admin: 06/23/19 06:11 Dose: 100 mg Enoxaparin Sodium (Lovenox -) 40 mg SQ DAILY [facility] Last Admin: 06/23/19 10:08 Dose: 40 mg Fentanyl (Sublimaze Injection -) 50 mcg IVPUSH [id number] PRN PRN Reason: PAIN-PACU ORDER X 4 DOSES ONLY Fluoxetine HCl (Prozac -) 20 mg PO DAILY [facility] Last Admin: 06/23/19 10:08 Dose: 20 mg Clindamycin Phosphate (Cleocin 600 Mg Premix Ivpb -) 600 mg in 50 mls @ 100 mls /hr IVPB Q8H [facility] Stop: 06/23/19 15:29 Last Admin: 06/23/19 06:10 Dose: 100 mls/hr Sodium Chloride (Normal Saline -) 1,000 mls @ 42 mls/hr IV ASDIR [facility] Last Admin: 06/22/19 23:52 Dose: 42 mls/hr Insulin Aspart (Novolog Vial Sliding Scale -) 1 vial SQ BIDAC [facility]; Protocol Last Admin: 06/23/19 06:11 Dose: Not Given Lidocaine (Lidoderm Patch -) 1 patch TP DAILY [facility] Last Admin: 06/23/19 10:08 Dose: 1 patch Losartan Potassium (Cozaar -) 50 mg PO DAILY [facility] Last Admin: 06/23/19 10:08 Dose: 50 mg Metoprolol Succinate (Toprol Xl -) 50 mg PO DAILY [facility] Last Admin: 06/23/19 10:08 Dose: 50 mg Miscellaneous (Lidoderm Patch Removal) 1 each MC DAILY@2200 [facility] Last Admin: 06/22/19 23:53 Dose: Not Given Morphine Sulfate (Morphine Sulfate) 1 mg IVPUSH Q4H PRN PRN Reason: PAIN LEVEL 7 - 10 Ondansetron HCl (Zofran Injection) 4 mg IVPUSH Q6H PRN PRN Reason: NAUSEA AND/OR VOMITING Polyethylene Glycol (Miralax (For Daily Use) -) 17 gm PO DAILY [facility] Last Admin: 06/23/19 10:31 Dose: 17 gm Promethazine HCl (Phenergan Injection -) 12.5 mg IVPUSH Q6H PRN PRN Reason: NAUSEA-FOR RESCUE AFTER 15 MIN Tramadol HCl (Ultram -) 50 mg PO Q4H PRN PRN Reason: PAIN LEVEL 7 - 10 Last Admin: 06/23/19 00:07 Dose: 50 mg Vital Signs Period Temp Pulse Resp BP Sys/Hoang Pulse Ox Last 24 Hr 97.5 F-99.1 F 69-87 10-22 115-163/51-77 10-100 Constitutional: Yes: Well Nourished, No Distress, Calm Cardiovascular: Yes: Regular Rate and Rhythm, S1, S2. No: JVD, Gallop, Murmur Respiratory: Yes: Regular, CTA Bilaterally. No: Accessory Muscle Use, Rales, Wheezes Extremities: No: Cold Edema: No Neurological: Yes: Alert, Oriented Psychiatric: No: Agitated Assessment/Plan CXR: no acute process EKG: sinus, PACs, no ischemic changes echo 05/2019 nl LVEF. nl RVSF. mod TR. RVSP is at least 55 mmHg. preop, hip fracture - s/p fall - no loss of consciousness or suspected CV sx's (fall sec to leg weakness) - s/p IM gamma nail, manage per ortho HTN - stable on current meds, continue DM - manage per primary
--- NOTE | 2019-06-23 11:00 | PN ---
Progress Note (short form) - Note Progress Note: Ortho Pt seen and examined s/p left IM gamma nail pod #1 Selected Entries 06/23/19 08:53 Temperature 99.1 F Pulse Rate 87 Respiratory 18 Rate Blood Pressure 127/61 Laboratory Tests 06/23/19 08:10 WBC 7.1 Hgb 9.5 L Hct 27.4 L Plt Count 159 dressing with mild drainage, calf soft, nt nvi a/p PT, PWB will monitor dressing dvt ppx pain control d/c planning
--- NOTE | 2019-06-23 15:15 | PN ---
Progress Note (short form) - Note Progress Note: Anesthesia Post Op Note Pt seen s/p gamma nail Pt awake and alert in bed Pt reports good pain control Pt denies n/v, h/a, puritis Has been out of bed to chair once with assistance no urinary retention VSS no apparent anesthesia complications Tommy Angelo.
[2019-06-23] MEDS: LIDOCAINE PATCH REMOVAL MC SCH (21:23)
[2019-06-23] MEDS: SODIUM CHLORIDE 1,000 ML IV SCH (22:57)
[2019-06-24] MEDS: INSULIN SLIDING SCALE (NOVOLOG) 1 VIAL SQ SCH ×2 (06:39→17:04)
[2019-06-24] MEDS: DOCUSATE SODIUM 100 MG CAPSULE (FP) PO SCH ×3 (06:39→21:20)
--- NOTE | 2019-06-24 07:45 | PN ---
Progress Note, Physician Chief Complaint: s/p left femur IM nailing, POD#2 History of Present Illness: 83 year old female with PMH of HTN, DM, Depression and liver disease (secondary to ETOH)arrived to ED for hip pain post fall. Patient s/p fall at 10:30am went to her doctor office where she felt legs give way, fell down on left hip, also hit her left temporal head. Currently complaining of Left hip pain 8/10. Patient denies numbness, tingling. Denies fever, headache, dizziness, changes of vision, SOB, chest pain. Patient is not on anticoagulation. - Current Medication List Current Medications: Active Medications Acetaminophen (Tylenol -) 650 mg PO Q6H PRN PRN Reason: PAIN LEVEL 6-10 Cholecalciferol (Vitamin D3 -) 2,000 unit PO DAILY [facility] Last Admin: 06/23/19 10:08 Dose: 2,000 unit Diazepam (Valium -) 5 mg PO Q8H PRN PRN Reason: ANXIETY Docusate Sodium (Colace -) 100 mg PO TID [facility] Last Admin: 06/24/19 06:39 Dose: 100 mg Enoxaparin Sodium (Lovenox -) 40 mg SQ DAILY [facility] Last Admin: 06/23/19 10:08 Dose: 40 mg Fentanyl (Sublimaze Injection -) 50 mcg IVPUSH [id number] PRN PRN Reason: PAIN-PACU ORDER X 4 DOSES ONLY Fluoxetine HCl (Prozac -) 20 mg PO DAILY [facility] Last Admin: 06/23/19 10:08 Dose: 20 mg Sodium Chloride (Normal Saline -) 1,000 mls @ 42 mls/hr IV ASDIR [facility] Last Admin: 06/23/19 22:57 Dose: 42 mls/hr Insulin Aspart (Novolog Vial Sliding Scale -) 1 vial SQ BIDAC [facility]; Protocol Last Admin: 06/24/19 06:39 Dose: Not Given Lidocaine (Lidoderm Patch -) 1 patch TP DAILY [facility] Last Admin: 06/23/19 10:08 Dose: 1 patch Losartan Potassium (Cozaar -) 50 mg PO DAILY [facility] Last Admin: 06/23/19 10:08 Dose: 50 mg Metoprolol Succinate (Toprol Xl -) 50 mg PO DAILY [facility] Last Admin: 06/23/19 10:08 Dose: 50 mg Miscellaneous (Lidoderm Patch Removal) 1 each MC DAILY@2200 [facility] Last Admin: 06/23/19 21:23 Dose: Not Given Morphine Sulfate (Morphine Sulfate) 1 mg IVPUSH Q4H PRN PRN Reason: PAIN LEVEL 7 - 10 Ondansetron HCl (Zofran Injection) 4 mg IVPUSH Q6H PRN PRN Reason: NAUSEA AND/OR VOMITING Polyethylene Glycol (Miralax (For Daily Use) -) 17 gm PO DAILY [facility] Last Admin: 06/23/19 10:31 Dose: 17 gm Promethazine HCl (Phenergan Injection -) 12.5 mg IVPUSH Q6H PRN PRN Reason: NAUSEA-FOR RESCUE AFTER 15 MIN Tramadol HCl (Ultram -) 50 mg PO Q4H PRN PRN Reason: PAIN LEVEL 7 - 10 Last Admin: 06/23/19 23:07 Dose: 50 mg - Objective Vital Signs: Vital Signs Temperature 98.9 F 06/23/19 21:28 Pulse Rate 97 H 06/23/19 21:28 Respiratory Rate 18 06/23/19 21:28 Blood Pressure 116/59 L 06/23/19 21:28 O2 Sat by Pulse Oximetry (%) 99 06/23/19 21:00 Constitutional: Yes: Well Nourished, No Distress, Calm Eyes: Yes: WNL, Conjunctiva Clear Neck: Yes: WNL, Supple, Trachea Midline Cardiovascular: Yes: WNL, Regular Rate and Rhythm Respiratory: Yes: WNL, Regular, CTA Bilaterally Gastrointestinal: Yes: WNL, Normal Bowel Sounds ...Rectal Exam: Yes: Deferred Genitourinary: Yes: WNL Breast(s): Yes: WNL Musculoskeletal: Yes: Joint Swelling, Other (Left hip) Extremities: Yes: Other (S/P IM nailing left) Edema: No Peripheral Pulses WNL: Yes Peripheral Pulses: Left Radial: 2+, Right Radial: 2+, Left Doralis Pedis: 2+, Right Dorsalis Pedis: 2+, Left Femoral: 2+, Right Femoral: 2+ Integumentary: Yes: WNL Wound/Incision: Yes: Clean/Dry, Dressing Dry and Intact Neurological: Yes: WNL, Alert, Oriented ...Motor Strength: LLE (weak secondary to pain) Psychiatric: Yes: WNL Labs: CBC, BMP 06/23/19 08:10 06/23/19 08:10 INR, PTT INR 1.09 (0.83-1.09) 06/23/19 08:10 Problem List - Problems (1) Depression Assessment/Plan: c/w prozac emotional support provided Code(s): F32.9 - MAJOR DEPRESSIVE DISORDER, SINGLE EPISODE, UNSPECIFIED (2) Cirrhosis, alcoholic Assessment/Plan: last drink > 30 years ago Code(s): K70.30 - ALCOHOLIC CIRRHOSIS OF LIVER WITHOUT ASCITES (3) Diabetes Assessment/Plan: BGM qAC/HS with novolog sliding scale diabetic diet Code(s): E11.9 - TYPE 2 DIABETES MELLITUS WITHOUT COMPLICATIONS (4) HTN (hypertension) Assessment/Plan: normotensive c/w cozaar, toprol Code(s): I10 - ESSENTIAL (PRIMARY) HYPERTENSION (5) Prophylactic measure Assessment/Plan: FEN diabetic diet monitor electrolytes DVT lovenox Dispo maintain as in patient full code discharge planning to [facility]-accepted waiting for a bed Code(s): Z29.9 - ENCOUNTER FOR PROPHYLACTIC MEASURES, UNSPECIFIED (6) Hyponatremia Assessment/Plan: Na 135 chronic use of hctz limit free water to 1500cc/day Code(s): E87.1 - HYPO-OSMOLALITY AND HYPONATREMIA (7) Intertrochanteric fracture of left hip Assessment/Plan: POD #2 left IM nailing c/w lidoderm patches and PRN MSO4 c/w lovenox Code(s): S72.142A - DISPLACED INTERTROCHANTERIC FRACTURE OF LEFT FEMUR, INIT Qualifiers: Encounter type: initial encounter Fracture type: closed Fracture alignment: displaced Qualified Code(s): S72.142A - Displaced intertrochanteric fracture of left femur, initial encounter for closed fracture (8) Hammer toe Assessment/Plan: Seen by podiatry plan for debridement of nails when medically stable Foot care q8 weeks after discharge Patient requires diabetic shoes on discharge Code(s): M20.40 - OTHER HAMMER TOE(S) (ACQUIRED), UNSPECIFIED FOOT Visit type - Emergency Visit Emergency Visit: Yes ED Registration Date: 06/18/19 Care time: The patient presented to the Emergency Department on the above date and was hospitalized for further evaluation of their emergent condition. - New Patient This patient is new to me today: No - Critical Care Critical Care patient: No - Discharge Referral Referred to [facility] Med P.C.: No
[2019-06-24 08:40] LABS: ALBUMIN 2.3 g/dl (3.4-5.0); BILIRUBIN,TOTAL 1.7 mg/dL (0.2-1); BLOOD UREA NITROGEN 24.2 mg/dL (7-18); CALCIUM 8.1 mg/dL (8.5-10.1); CREATININE 0.7 mg/dL (0.55-1.3); MAGNESIUM 1.7 mg/dL (1.8-2.4); POTASSIUM 3.7 mmol/L (3.5-5.1); TOT PROT 5.2 g/dl (6.4-8.2)
[2019-06-24 08:57] LABS: INR 1.12 (0.83-1.09); PROTHROMBIN TIME (PATIENT) 13.2 SEC (9.7-13.0)
[2019-06-24 09:11] LABS: BASO % 0.6 % (0-2.0); EOS % 3.2 % (0-4.5); HEMATOCRIT 27.9 % (32.4-45.2); HEMOGLOBIN 9.7 GM/dL (10.7-15.3); LYMPH % 18.6 % (8-40); MCH 34.3 pg (25.7-33.7); MCHC 34.7 g/dl (32.0-36.0); MEAN CELL VOLUME 98.8 fl (80-96); MEAN PLT VOLUME 7.2 fl (7.5-11.1); MONO % 13.3 % (3.8-10.2); NEUT % 64.3 % (42.8-82.8); PLATELET COUNT 197 K/MM3 (134-434); RBC 2.83 M/mm3 (3.60-5.2); RDW 13.6 % (11.6-15.6)
--- NOTE | 2019-06-24 09:18 | PN ---
Progress Note (short form) - Note Progress Note: Ortho Pt seen and examined s/p left IM gamma nail pod #2 Selected Entries 06/24/19 08:57 Temperature 98.2 F Pulse Rate 98 H Respiratory 18 Rate Blood Pressure 145/79 Laboratory Tests 06/24/19 07:47 WBC Pending Hgb Pending Hct Pending Plt Count Pending dressing with mild drainage, calf soft, nt nvi a/p dressing changed PT, PWB dvt ppx pain control d/c planning
[2019-06-24] MEDS: traMADol HCL 50 MG TABLET PO PRN ×3 (10:11→21:19)
[2019-06-24] MEDS: FLUoxetine HCL 20 MG CAPSULE (FP) PO SCH (10:11)
[2019-06-24] MEDS: POLYETHYLENE GLYCOL 3350 119 GM BTL PO SCH (10:12)
[2019-06-24] MEDS: CHOLECALCIFEROL (VIT D3) 1,000 UNIT (25 MCG) TABLET PO SCH (10:12)
[2019-06-24] MEDS: LIDOCAINE 5% TOPICAL PATCH TP SCH (10:12)
[2019-06-24] MEDS: ENOXAPARIN NA (PORCINE) 40 MG/0.4 ML DISP.SYRIN SQ SCH (10:12)
[2019-06-24] MEDS: LOSARTAN POTASSIUM 50 MG TABLET (FP) PO SCH (10:12)
--- NOTE | 2019-06-24 12:48 | PN ---
Progress Note (short form) - Note Progress Note: s: no chest pain, palps, dizziness, dyspnea. POD L IM gamma nail for hip fx Current Medications Generic Name Dose Route Start Last Admin Trade Name Freq PRN Reason Stop Dose Admin Acetaminophen 650 mg 06/22/19 19:48 Tylenol - PO Q6H PRN PAIN LEVEL 6-10 Cholecalciferol 2,000 unit 06/23/19 10:00 06/24/19 10:12 Vitamin D3 - PO 2,000 unit DAILY [facility] Administration Diazepam 5 mg 06/22/19 19:48 Valium - PO Q8H PRN ANXIETY Docusate Sodium 100 mg 06/22/19 22:00 06/24/19 06:39 Colace - PO 100 mg TID [facility] Administration Enoxaparin Sodium 40 mg 06/23/19 10:00 06/24/19 10:12 Lovenox - SQ 40 mg DAILY [facility] Administration Fentanyl 50 mcg 06/22/19 19:48 Sublimaze Injection - IVPUSH [id number] PRN PAIN-PACU ORDER X 4 DOSES ONLY Fluoxetine HCl 20 mg 06/23/19 10:00 06/24/19 10:11 Prozac - PO 20 mg DAILY [facility] Administration Sodium Chloride 1,000 mls @ 42 mls/hr 06/22/19 21:30 06/23/19 22:57 Normal Saline - IV 42 mls/hr ASDIR [facility] Administration Insulin Aspart 1 vial 06/23/19 07:00 06/24/19 06:39 Novolog Vial Sliding Scale - SQ Not Given BIDAC [facility] Protocol Lidocaine 1 patch 06/23/19 10:00 06/24/19 10:12 Lidoderm Patch - TP 1 patch DAILY [facility] Administration Losartan Potassium 50 mg 06/23/19 10:00 06/24/19 10:12 Cozaar - PO 50 mg DAILY [facility] Administration Metoprolol Succinate 50 mg 06/23/19 10:00 06/24/19 10:12 Toprol Xl - PO 50 mg DAILY [facility] Administration Miscellaneous 1 each 06/22/19 22:00 06/23/19 21:23 Lidoderm Patch Removal MC Not Given DAILY@2200 [facility] Morphine Sulfate 1 mg 06/22/19 19:48 Morphine Sulfate IVPUSH Q4H PRN PAIN LEVEL 7 - 10 Ondansetron HCl 4 mg 06/22/19 19:48 Zofran Injection IVPUSH Q6H PRN NAUSEA AND/OR VOMITING Polyethylene Glycol 17 gm 06/23/19 10:00 06/24/19 10:12 Miralax (For Daily Use) - PO 17 gm DAILY [facility] Administration Promethazine HCl 12.5 mg 06/22/19 19:48 Phenergan Injection - IVPUSH Q6H PRN NAUSEA-FOR RESCUE AFTER 15 MIN Tramadol HCl 50 mg 06/22/19 19:48 06/24/19 10:11 Ultram - PO 50 mg Q4H PRN Administration PAIN LEVEL 7 - 10 Vital Signs Period Temp Pulse Resp BP Sys/Hoang Pulse Ox Last 24 Hr 98.2 F-98.9 F 90-112 18-20 115-145/54-79 99 Constitutional: Yes: Well Nourished, No Distress, Calm Cardiovascular: Yes: Regular Rate and Rhythm, S1, S2. No: JVD, Gallop, Murmur Respiratory: Yes: Regular, CTA Bilaterally. No: Accessory Muscle Use, Rales, Wheezes Extremities: No: Cold Edema: No Neurological: Yes: Alert, Oriented Psychiatric: No: Agitated CBC, BMP 06/24/19 07:47 06/24/19 07:47 Assessment/Plan CXR: no acute process EKG: sinus, PACs, no ischemic changes echo 05/2019 nl LVEF. nl RVSF. mod TR. RVSP is at least 55 mmHg. preop, hip fracture - s/p fall - no loss of consciousness or suspected CV sx's (fall sec to leg weakness) - s/p IM gamma nail, manage per ortho HTN - stable on current meds, continue DM - manage per primary
[2019-06-24 19:05] VITALS: TEMP 98.1
[2019-06-24] MEDS: SODIUM CHLORIDE 1,000 ML IV SCH (21:20)
--- NOTE | 2019-06-24 22:01 | DS ---
Physical Exam: SUBJECTIVE: Patient seen and examined s/p left femur IM nailing History of Present Illness: 83 year old female with PMH of HTN, DM, Depression and liver disease (secondary to ETOH)arrived to ED for hip pain post fall. Patient s/p fall at 10:30am went to her doctor office where she felt legs give way, fell down on left hip, also hit her left temporal head . OBJECTIVE: Vital Signs Period Temp Pulse Resp BP Sys/Hoang Pulse Ox Last 24 Hr 98.1 F-98.2 F 98-106 18-18 119-145/56-79 99 PHYSICAL EXAM Constitutional: Yes: Well Nourished, No Distress, Calm Eyes: Yes: WNL, Conjunctiva Clear Neck: Yes: WNL, Supple, Trachea Midline Cardiovascular: Yes: WNL, Regular Rate and Rhythm Respiratory: Yes: WNL, Regular, CTA Bilaterally Gastrointestinal: Yes: WNL, Normal Bowel Sounds ...Rectal Exam: Yes: Deferred Genitourinary: Yes: WNL Breast(s): Yes: WNL Musculoskeletal: Yes: Joint Swelling, Other (Left hip) Extremities: Yes: Other (S/P IM nailing left) Edema: No Peripheral Pulses WNL: Yes Peripheral Pulses: Left Radial: 2+, Right Radial: 2+, Left Doralis Pedis: 2+, Right Dorsalis Pedis: 2+, Left Femoral: 2+, Right Femoral: 2+ Integumentary: Yes: WNL Wound/Incision: Yes: Clean/Dry, Dressing Dry and Intact Neurological: Yes: WNL, Alert, Oriented ...Motor Strength: LLE (weak secondary to pain) Psychiatric: Yes: WNL LABS Laboratory Results - last 24 hr 06/24/19 06/24/19 06/24/19 06:39 07:47 07:47 WBC 8.0 RBC 2.83 L Hgb 9.7 L Hct 27.9 L MCV 98.8 H MCH 34.3 H MCHC 34.7 RDW 13.6 Plt Count 197 D MPV 7.2 L Absolute Neuts (auto) 5.2 Neutrophils % 64.3 Lymphocytes % 18.6 D Monocytes % 13.3 H Eosinophils % 3.2 Basophils % 0.6 Nucleated RBC % 0 PT with INR 13.20 H INR 1.12 H Sodium Potassium Chloride Carbon Dioxide Anion Gap BUN Creatinine Est GFR (CKD-EPI)AfAm Est GFR (CKD-EPI)NonAf POC Glucometer 106 Random Glucose Calcium Magnesium Total Bilirubin AST ALT Alkaline Phosphatase Total Protein Albumin 06/24/19 06/24/19 07:47 16:56 WBC RBC Hgb Hct MCV MCH MCHC RDW Plt Count MPV Absolute Neuts (auto) Neutrophils % Lymphocytes % Monocytes % Eosinophils % Basophils % Nucleated RBC % PT with INR INR Sodium 135 L Potassium 3.7 Chloride 102 Carbon Dioxide 24 Anion Gap 9 BUN 24.2 H Creatinine 0.7 Est GFR (CKD-EPI)AfAm 93.52 Est GFR (CKD-EPI)NonAf 80.69 POC Glucometer 88 Random Glucose 100 Calcium 8.1 L Magnesium 1.7 L Total Bilirubin 1.7 H AST 31 ALT 15 Alkaline Phosphatase 124 H Total Protein 5.2 L Albumin 2.3 L HOSPITAL COURSE: Date of Admission:06/18/19 Date of Discharge: 06/24/19 IM nailing of left hip on 06/22 after witness fall (1) Depression Assessment/Plan: Treated for depression c/w prozac upron discharge. F/u with home PCP/ psychiatrist emotional support provided during hospital stay (2) Cirrhosis, alcoholic Assessment/Plan: last drink > 30 years ago (3) Diabetes Assessment/Plan: BGM qAC/HS with novolog sliding scale. No coverage needed durtng stay. Merformin to be restart morinng of discharge to rehab and continue at home diabetic diet to continue (4) HTN (hypertension) Assessment/Plan: normotensive throughout stay. c/w cozaar, toprol on discharge (5) Prophylactic measure Assessment/Plan: FEN diabetic diet continued electrolytes monitored and repleted accordingly during course DVT lovenox given prior to surgery Dispo discharged to to [facility] (6) Hyponatremia Assessment/Plan: Sodium dropped to Na 131 during admission. CHronic Hctz use. Fluid restricted and sodium returned back to 135 (7) Intertrochanteric fracture of left hip Assessment/Plan: s/p left IM nailing of the hip. partial weight bearing that will gradually increase. (8) Hammer toe Assessment/Plan: Seen by podiatry plan for debridement of nails when rehab is complete Foot care q8 weeks after discharge Patient requires diabetic shoes on discharge Minutes to complete discharge: 45 Discharge Summary Problems reviewed: Yes Reason For Visit: FRACTURE OF LEFT HIP Current Active Problems Cirrhosis, alcoholic (Acute) Depression (Acute) Hammer toe (Acute) Hip fracture, left (Acute) Hyponatremia (Acute) Other Procedures: IM nailing of left hip Hospital Course: HOSPITAL COURSE: Date of Admission:06/18/19 Date of Discharge: 06/24/19 IM nailing of left hip on 06/22 after witness fall (1) Depression Assessment/Plan: Treated for depression c/w prozac upron discharge. F/u with home PCP/ psychiatrist emotional support provided during hospital stay (2) Cirrhosis, alcoholic Assessment/Plan: last drink > 30 years ago (3) Diabetes Assessment/Plan: BGM qAC/HS with novolog sliding scale. No coverage needed durtng stay. Merformin to be restart morinng of discharge to rehab and continue at home diabetic diet to continue (4) HTN (hypertension) Assessment/Plan: normotensive throughout stay. c/w cozaar, toprol on discharge (5) Prophylactic measure Assessment/Plan: FEN diabetic diet continued electrolytes monitored and repleted accordingly during course DVT lovenox given prior to surgery Dispo discharged to to [facility] (6) Hyponatremia Assessment/Plan: Sodium dropped to Na 131 during admission. CHronic Hctz use. Fluid restricted and sodium returned back to 135 (7) Intertrochanteric fracture of left hip Assessment/Plan: s/p left IM nailing of the hip. partial weight bearing that will gradually increase. (8) Hammer toe Assessment/Plan: Seen by podiatry plan for debridement of nails when rehab is complete Foot care q8 weeks after discharge Patient requires diabetic shoes on discharge Plan of Treatment: [facility] [place] Condition: Improved - Instructions Diet, Activity, Other Instructions: Post Operative Instructions Physical activity You are being discharged to [facility]. Partial Weight bearing as tolerated on your surgical side. Wound care Leave your surgical dressing in place. Do not change the dressing until seen by your surgeon in the office. No baths or showers. Do not submerge your incision. Do not apply any ointments or lotions to your incision. Diet There are no dietary restrictions. Eat healthy, high-fiber foods. Drink 6 to 8 glasses of liquid each day. This will assist in keeping your bowels are regular. Pain management Any pain prescription medication ordered should be taken as prescribed for moderate to severe pain. Do not take additional Tylenol while taking Percocet. Posterior Hip Precautions: Do not cross the leg you had surgery on over your other leg. (Do not cross your legs.)Use an elevated toilet seat. Do not sit on low chairs or beds. Use purple pillow (abductor) when lying in bed. Call Dr. Farrell for any of the following: Severe pain not relieved by medication Fever of 101 or higher Excessive bleeding or drainage on dressing Inability to urinate If you experience chest pain or shortness of breath, please seek emergency care immediately. Referrals: Prudencio Farrell MD [Staff Physician] - Shaheen Yañez MD [Staff Physician] - Disposition: [facility] FACILITY - Home Medications Comprehensive Discharge Medication List: Ambulatory Orders Metformin HCl [Glucophage] 850 mg PO DAILY 11/21/11 Fluoxetine HCl [Prozac -] 20 mg PO DAILY #0 capsule 12/04/11 Aspirin 81 mg PO Q2D 06/18/19 Atenolol [Tenormin] 50 mg PO DAILY 06/18/19 Celecoxib [Celebrex] 100 mg PO DAILY 06/18/19 Losartan/Hydrochlorothiazide [Losartan-Hctz 50-12.5 mg Tab] PO DAILY 06/18/19 Vitamin D3 2,000 units PO DAILY 06/18/19 Acetaminophen [Tylenol .Regular Strength -] 650 mg PO Q6H PRN tablet 06/24/19 Docusate Sodium [Colace -] 100 mg PO TID capsule 06/24/19 Enoxaparin [Lovenox -] 40 mg SQ DAILY disp.syrin 06/24/19 Enoxaparin [Lovenox -] 40 mg SQ DAILY disp.syrin 06/24/19 Losartan Potassium [Cozaar -] 50 mg PO DAILY tablet 06/24/19 Metoprolol Succinate [Toprol XL -] 50 mg PO DAILY tab.sr.24h 06/24/19 Polyethylene Glycol 3350 [Miralax 119 gm Btl -] 17 gm PO DAILY bottle 06/24/19 traMADol HCL [Ultram -] 50 mg PO Q6H PRN tablet MDD 4 06/24/19 Prescription Drug Monitoring Program (I-STOP) results: I-STOP reviewed and no issues identified Problem List - Problems (1) Depression Code(s): F32.9 - MAJOR DEPRESSIVE DISORDER, SINGLE EPISODE, UNSPECIFIED (2) Cirrhosis, alcoholic Code(s): K70.30 - ALCOHOLIC CIRRHOSIS OF LIVER WITHOUT ASCITES (3) Diabetes Code(s): E11.9 - TYPE 2 DIABETES MELLITUS WITHOUT COMPLICATIONS (4) HTN (hypertension) Code(s): I10 - ESSENTIAL (PRIMARY) HYPERTENSION (5) Prophylactic measure Code(s): Z29.9 - ENCOUNTER FOR PROPHYLACTIC MEASURES, UNSPECIFIED (6) Hyponatremia Code(s): E87.1 - HYPO-OSMOLALITY AND HYPONATREMIA (7) Intertrochanteric fracture of left hip Code(s): S72.142A - DISPLACED INTERTROCHANTERIC FRACTURE OF LEFT FEMUR, INIT Qualifiers: Encounter type: initial encounter Fracture type: closed Fracture alignment: displaced Qualified Code(s): S72.142A - Displaced intertrochanteric fracture of left femur, initial encounter for closed fracture (8) Hammer toe Code(s): M20.40 - OTHER HAMMER TOE(S) (ACQUIRED), UNSPECIFIED FOOT This patient is new to me today: No Emergency Visit: Yes ED Registration Date: 06/18/19 Care time: The patient presented to the Emergency Department on the above date and was hospitalized for further evaluation of their emergent condition. Critical Care patient: No - Discharge Referral Referred to [facility] Med P.C.: No
[2019-06-24] MEDS: LIDOCAINE PATCH REMOVAL MC SCH (23:00)
[2019-06-25] MEDS: DOCUSATE SODIUM 100 MG CAPSULE (FP) PO SCH (06:03)
[2019-06-25] MEDS: INSULIN SLIDING SCALE (NOVOLOG) 1 VIAL SQ SCH (06:15)
[2019-06-25] MEDS ORDERED: PT OWN MED DRAWER 7, Y5N ONE ×2 (06:30→08:57)
[2019-06-25] MEDS: traMADol HCL 50 MG TABLET PO PRN (06:35)
--- NOTE | 2019-06-25 08:23 | HOSP ---
Physical Examination Vital Signs: Vital Signs Temperature 98.1 F 06/24/19 22:00 Pulse Rate 75 06/25/19 06:00 Respiratory Rate 20 06/24/19 22:00 Blood Pressure 125/62 06/25/19 06:00 O2 Sat by Pulse Oximetry (%) 96 06/24/19 21:00 Findings/Remarks: Constitutional: Yes: Well Nourished, No Distress, Calm Eyes: Yes: WNL, Conjunctiva Clear Neck: Yes: WNL, Supple, Trachea Midline Cardiovascular: Yes: WNL, Regular Rate and Rhythm Respiratory: Yes: WNL, Regular, CTA Bilaterally Gastrointestinal: Yes: WNL, Normal Bowel Sounds ...Rectal Exam: Yes: Deferred Genitourinary: Yes: WNL Breast(s): Yes: WNL Musculoskeletal: Yes: Joint Swelling, Other (Left hip) Extremities: Yes: Other (S/P IM nailing left) Edema: No Peripheral Pulses WNL: Yes Peripheral Pulses: Left Radial: 2+, Right Radial: 2+, Left Doralis Pedis: 2+, Right Dorsalis Pedis: 2+, Left Femoral: 2+, Right Femoral: 2+ Integumentary: Yes: WNL Wound/Incision: Yes: Clean/Dry, Dressing Dry and Intact Neurological: Yes: WNL, Alert, Oriented ...Motor Strength: LLE (weak secondary to pain) Psychiatric: Yes: WNL Labs: CBC, BMP 06/24/19 07:47 06/24/19 07:47 Hospitalist Encounter Assessment: Transportation arranged to [facility] at 11:30am
[2019-06-25 08:50] VITALS: BP 138/74; PULSE 89
[2019-06-25] MEDS: ENOXAPARIN NA (PORCINE) 40 MG/0.4 ML DISP.SYRIN SQ SCH (09:08)
[2019-06-25] MEDS: FLUoxetine HCL 20 MG CAPSULE (FP) PO SCH (09:08)
[2019-06-25] MEDS: LOSARTAN POTASSIUM 50 MG TABLET (FP) PO SCH (09:08)
[2019-06-25] MEDS: CHOLECALCIFEROL (VIT D3) 1,000 UNIT (25 MCG) TABLET PO SCH (09:08)
[2019-06-25] MEDS: LIDOCAINE 5% TOPICAL PATCH TP SCH (09:08)
[2019-06-25] MEDS: POLYETHYLENE GLYCOL 3350 119 GM BTL PO SCH (09:09)
--- NOTE | 2019-06-25 10:04 | PN ---
Progress Note, Physician Chief Complaint: no CP or SOB; denies palps. - Current Medication List Current Medications: Active Medications Acetaminophen (Tylenol -) 650 mg PO Q6H PRN PRN Reason: PAIN LEVEL 6-10 Cholecalciferol (Vitamin D3 -) 2,000 unit PO DAILY [facility] Last Admin: 06/25/19 09:08 Dose: 2,000 unit Diazepam (Valium -) 5 mg PO Q8H PRN PRN Reason: ANXIETY Docusate Sodium (Colace -) 100 mg PO TID [facility] Last Admin: 06/25/19 06:03 Dose: Not Given Enoxaparin Sodium (Lovenox -) 40 mg SQ DAILY [facility] Last Admin: 06/25/19 09:08 Dose: 40 mg Fluoxetine HCl (Prozac -) 20 mg PO DAILY [facility] Last Admin: 06/25/19 09:08 Dose: 20 mg Sodium Chloride (Normal Saline -) 1,000 mls @ 42 mls/hr IV ASDIR [facility] Last Admin: 06/24/19 21:20 Dose: 42 mls/hr Insulin Aspart (Novolog Vial Sliding Scale -) 1 vial SQ BIDAC [facility]; Protocol Last Admin: 06/25/19 06:15 Dose: Not Given Lidocaine (Lidoderm Patch -) 1 patch TP DAILY [facility] Last Admin: 06/25/19 09:08 Dose: 1 patch Losartan Potassium (Cozaar -) 50 mg PO DAILY [facility] Last Admin: 06/25/19 09:08 Dose: 50 mg Metformin HCl (Glucophage -) 850 mg PO DAILY@0700 [facility] Last Admin: 06/25/19 06:35 Dose: 850 mg Metoprolol Succinate (Toprol Xl -) 50 mg PO DAILY [facility] Last Admin: 06/25/19 09:08 Dose: 50 mg Miscellaneous (Lidoderm Patch Removal) 1 each MC DAILY@2200 [facility] Last Admin: 06/24/19 23:00 Dose: Not Given Ondansetron HCl (Zofran Injection) 4 mg IVPUSH Q6H PRN PRN Reason: NAUSEA AND/OR VOMITING Polyethylene Glycol (Miralax (For Daily Use) -) 17 gm PO DAILY [facility] Last Admin: 06/25/19 09:09 Dose: Not Given Promethazine HCl (Phenergan Injection -) 12.5 mg IVPUSH Q6H PRN PRN Reason: NAUSEA-FOR RESCUE AFTER 15 MIN Tramadol HCl (Ultram -) 50 mg PO Q4H PRN PRN Reason: PAIN LEVEL 7 - 10 Last Admin: 06/25/19 06:35 Dose: 50 mg - Objective Vital Signs: Vital Signs Temperature 98.1 F 06/25/19 08:45 Pulse Rate 89 06/25/19 08:45 Respiratory Rate 18 06/25/19 08:45 Blood Pressure 138/74 06/25/19 08:45 O2 Sat by Pulse Oximetry (%) 96 06/24/19 21:00 Constitutional: Yes: No Distress, Calm Eyes: Yes: Conjunctiva Clear Cardiovascular: Yes: Regular Rate and Rhythm Respiratory: Yes: CTA Bilaterally Gastrointestinal: Yes: Soft Edema: No Neurological: Yes: Alert, Oriented Labs: CBC, BMP 06/24/19 07:47 06/24/19 07:47 INR, PTT INR 1.12 (0.83-1.09) H 06/24/19 07:47 Assessment/Plan Assessment/Plan CXR: no acute process EKG: sinus, PACs, no ischemic changes echo 05/2019 nl LVEF. nl RVSF. mod TR. RVSP is at least 55 mmHg. hip fracture: - s/p fall - no loss of consciousness or suspected CV sx's (fall sec to leg weakness) - s/p IM gamma nail, manage per ortho HTN - stable on current meds, continue DM - manage per primary PHTN: Outpt work up -No hypoxia, tachycardia or CP/SOB to clinically suggest PE. -Defer to PMD for further outpt evaluation
== END 2019-06-25 13:08 | DRG 481 ==
LOC: JER 10:52 → JERBED 14:59 → J4S 20:15
PROVIDERS: ADMIT Internal Medicine; ATTEND Nurse Practitioner Acute Care
PROC: 0QS706Z Reposition Left Upper Femur with Intramedullary Internal Fixation Device, Open Approach (ICD-10-PCS; principal; 2019-06-22 16:00)
DX: S72.142A Displaced intertrochanteric fracture of left femur, initial encounter for closed fracture (principal); E87.1 Hypo-osmolality and hyponatremia; I10 Essential (primary) hypertension; E11.9 Type 2 diabetes mellitus without complications; F41.9 Anxiety disorder, unspecified; F41.8 Other specified anxiety disorders; J44.9 Chronic obstructive pulmonary disease, unspecified; Z87.891 Personal history of nicotine dependence; D69.6 Thrombocytopenia, unspecified; M20.41 Other hammer toe(s) (acquired), right foot; B35.1 Tinea unguium; K70.30 Alcoholic cirrhosis of liver without ascites; W18.39XA Other fall on same level, initial encounter; Y92.098 Other place in other non-institutional residence as the place of occurrence of the external cause
CPT/HCPCS: 36415; 70450-TC; 71045-TC-FY; 72125-TC; 72131-TC; 73523-TC-FY; 76000-TC-FY; 80048; 80053; 82962; 83735; 84484; 85025; 85027; 85610; 86850; 86900; 86901; 93005; 93010; 93306-TC; 94010; 94760; 97116-GP; 97162-GP; 99283-25; J1644; J7030

== ENCOUNTER → 2021-05-16 | Day surgery (SDC) | payer OTHER | END | disposition home or self-care (01) | LOC: JRADUS-SUR 13:09 | PROVIDERS: ATTEND Internal Medicine Gastroenterology | PROC: 0H9V3ZX Drainage of Bilateral Breast, Percutaneous Approach, Diagnostic (ICD-10-PCS; principal; 2021-05-16) | DX: C50.912 Malignant neoplasm of unspecified site of left female breast (principal); C50.911 Malignant neoplasm of unspecified site of right female breast | CPT/HCPCS: 19083; 19084; 77066-TC; 87899; 88305-TC; 88341-TC; 88342-TC; A4648 ==

== ENCOUNTER 2021-08-17 07:51 | Day surgery (SDC) | payer OTHER ==
[2021-08-17] MEDS ORDERED: POTASSIUM CHLORIDE 20 MEQ in DEXTROSE 5%-0.45% SALINE - 500 ML IVPB ONE (10:00)
[2021-08-17] MEDS ORDERED: DENOSUMAB 120 MG/1.7 ML VIAL SQ ONE (10:00)
[2021-08-17 10:50] LABS: BASO % 0.9 % (0-2.0); EOS % 8.1 % (0-4.5); HEMATOCRIT 35.9 % (32.4-45.2); HEMOGLOBIN 12.5 GM/dL (10.7-15.3); LYMPH % 29.1 % (8-40); MCHC 34.7 g/dl (32.0-36.0); MEAN PLT VOLUME 7.5 fl (7.5-11.1); MONO % 13.1 % (3.8-10.2); NEUT % 48.8 % (42.8-82.8); PLATELET COUNT 96 10^3/uL (134-434); RBC 3.67 M/mm3 (3.60-5.2); RDW 13.4 % (11.6-15.6); WHITE BLOOD COUNT 4.5 K/mm3 (4.0-10.0)
[2021-08-17 11:31] LABS: ALBUMIN 2.8 g/dl (3.4-5.0); CALCIUM 11.1 mg/dL (8.5-10.1)
[2021-08-17 11:32] LABS: BLOOD UREA NITROGEN 25.3 mg/dL (7-18); MAGNESIUM 1.5 mg/dL (1.8-2.4)
[2021-08-17 11:34] LABS: BILIRUBIN,DIRECT 0.3 mg/dL (0.0-0.2); CREATININE 1.1 mg/dL (0.55-1.3)
[2021-08-17 11:35] LABS: PHOSPHOROUS 2.6 mg/dL (2.5-4.9)
[2021-08-17 11:36] LABS: BILIRUBIN,TOTAL 0.6 mg/dL (0.2-1); TOT PROT 6.4 g/dl (6.4-8.2)
[2021-08-17] MEDS ORDERED: MAGNESIUM SULFATE IN WATER 2 GM/50 ML IVPB IVPB ONE (12:30)
[2021-08-17 14:59] VITALS: TEMP 98.2
[2021-08-17 15:00] VITALS: BP 112/45; PULSE 43
== END 2021-08-17 14:10 | disposition home or self-care (01) ==
LOC: JONCCHEMO 07:51
PROVIDERS: ATTEND Internal Medicine Hematology & Oncology
PROC: 3E013GC Introduction of Other Therapeutic Substance into Subcutaneous Tissue, Percutaneous Approach (ICD-10-PCS; principal; 2021-08-17)
PROC: 3E033GC Introduction of Other Therapeutic Substance into Peripheral Vein, Percutaneous Approach (ICD-10-PCS; 2021-08-17)
PROC: 3E033GC Introduction of Other Therapeutic Substance into Peripheral Vein, Percutaneous Approach (ICD-10-PCS; 2021-08-17)
DX: C50.912 Malignant neoplasm of unspecified site of left female breast (principal); C50.911 Malignant neoplasm of unspecified site of right female breast; Z17.0 Estrogen receptor positive status [ER+]; Z76.89 Persons encountering health services in other specified circumstances; E83.52 Hypercalcemia
CPT/HCPCS: 36415; 80048; 80076; 83735; 84100; 85025; 96361; 96365; 96372; J0897

== ENCOUNTER 2021-08-20 04:47 | Day surgery (SDC) | payer OTHER ==
[2021-08-16 17:04] VITALS: BMI 25.8
[2021-08-20 10:42] LABS: CALCIUM 9.8 mg/dL (8.5-10.1)
[2021-08-20 10:43] LABS: BLOOD UREA NITROGEN 28.4 mg/dL (7-18); MAGNESIUM 1.7 mg/dL (1.8-2.4)
[2021-08-20 10:46] LABS: CREATININE 1.3 mg/dL (0.55-1.3); PHOSPHOROUS 1.6 mg/dL (2.5-4.9)
[2021-08-20 10:49] LABS: BASO % 1.4 % (0-2.0); EOS % 8.4 % (0-4.5); HEMOGLOBIN 12.1 GM/dL (10.7-15.3); MCH 33.8 pg (25.7-33.7); MCHC 33.6 g/dl (32.0-36.0); MEAN CELL VOLUME 100.5 fl (80-96); MEAN PLT VOLUME 8.1 fl (7.5-11.1); NEUT % 44.2 % (42.8-82.8); PLATELET COUNT 119 10^3/uL (134-434); RBC 3.58 M/mm3 (3.60-5.2); RDW 13.6 % (11.6-15.6); WHITE BLOOD COUNT 5.4 K/mm3 (4.0-10.0)
[2021-08-20 11:01] LABS: INR 1.12 (0.83-1.09); PROTHROMBIN TIME (PATIENT) 13.1 SEC (9.7-13.0)
[2021-08-20 17:48] VITALS: BP 129/61; PULSE 60; TEMP 98
== END 2021-08-20 17:20 | disposition home or self-care (01) ==
LOC: JRADIR 04:47
PROVIDERS: ATTEND Internal Medicine Hematology & Oncology
PROC: 0BBL3ZX Excision of Left Lung, Percutaneous Approach, Diagnostic (ICD-10-PCS; principal; 2021-08-20)
DX: C78.02 Secondary malignant neoplasm of left lung (principal); Z85.3 Personal history of malignant neoplasm of breast
CPT/HCPCS: 32408; 36415; 71046-TC-FY; 77012-TC; 80048; 83735; 84100; 85025; 85610; 88305-TC; 88341-TC; 88342-TC